=== PATIENT | male | born 1955 | race Caucasian/White ===

== ENCOUNTER → 2016-09-10 | Outpatient (CLI) | payer OTHER ==
[~2016-09-10] MED LIST: ALDACTONE 25MG25 M1 PO; AMOXICILLIN 8751 TAB PO; AMPICILLIN500 MG PO; LEVAQUIN 5500 MG/TA1 PO; NO HOME MEDICATIONS; NORCO 325 MG-51 TAB PO; PEPCID 20MG TAB20 MG PO; PROAIR HFA0.09 MG/AC IH; PROVENTIL0.09 MG/A1 IH; TOPROL XL 25MG25 MG PO; TUSS PO; XARELTO STARTER20 MG PO; XARELTO20 MG PO; ZESTRIL 5MG5 MG PO; ZITHROMAX 250M250 MG PO
[2016-09-10 12:45] LABS: ADJUSTED CALCIUM 9.3 mg/dL (8.4-10.2); ALBUMIN 3.8 gm/dL (3.5-5.0); BILIRUBIN,TOTAL 1.1 mg/dL (0.0-1.0); CALCIUM 9.1 mg/dL (8.4-10.2); CREATININE, serum 0.99 mg/dL (0.66-1.25); POTASSIUM 4.6 mmol/L (3.4-5.0); TOTAL PROTEIN 6.7 gm/dL (6.4-8.2)
[2016-09-10 12:57] LABS: HEMATOCRIT 47.3 % (42.0-52.0); HEMOGLOBIN 14.7 g/dl (13.5-18.0); MEAN CELL VOLUME 85 fl (80.0-100.0); MEAN CORPUSCULAR HEMOGLOBIN 26 pg (27.0-31.0); MEAN CORPUSCULAR HGB CONC 31 g/dl (33.0-37.0); MEAN PLATELET VOLUME 11.6 fl (7.4-10.4); PLATELET COUNT 167 K/mm3 (130-400); RED BLOOD COUNT 5.58 M/mm3 (4.20-5.60); REDCELL DISTRIBUTION WIDTH-CV 15.2 % (11.5-14.5); WHITE BLOOD COUNT 5.5 K/mm3 (4.8-10.8)
[2016-09-10 13:31] LABS: PSA-TOTAL 1.44 ng/mL (0-4)
== END ==
LOC: ZLAB.FHCC 11:50 → ZCOL.LAB 11:50
PROVIDERS: Family Medicine
DX: Z01.89 Encounter for other specified special examinations (principal)
CPT/HCPCS: G0103

== ENCOUNTER → 2016-09-25 | Outpatient (CLI) | payer OTHER | LOC: COL.VAS 13:01 | DX: I34.0 Nonrheumatic mitral (valve) insufficiency (principal); R06.02 Shortness of breath ==

== ENCOUNTER → 2017-01-27 | Outpatient (CLI) | payer OTHER | LOC: COL.VAS 10:12 | DX: I36.1 Nonrheumatic tricuspid (valve) insufficiency (principal) ==

== ENCOUNTER → 2017-11-14 | Outpatient (CLI) | payer SELFPAY | LOC: COL.PUL 14:49 | DX: R06.02 Shortness of breath (principal) ==

== ENCOUNTER 2020-12-17 11:53 | Inpatient (IN) | payer MEDICARE ==
[2020-12-17] VITALS (241 sets, daily range): BP systolic 94–115; BP diastolic 69–71; PULSE 92–100; TEMP 97.5; O2SAT 56–100
[~2020-12-17] VITALS: Ht 188 cm; Wt 147.8 kg
[2020-12-17 12:19] LABS: BASO % 0.4 % (0.0-2.0); EOS # 0.1 (0.0-0.7); EOS % 0.8 % (0-4.0); GRAN # 7.2 (1.4-6.5); GRAN % 79.2 % (42.2-75.2); HEMATOCRIT 48.1 % (42.0-52.0); HEMOGLOBIN 14.6 g/dl (13.5-18.0); LYMPH # 1.1 (1.2-3.4); LYMPH % 12.1 % (20.0-51.0); MEAN CELL VOLUME 84 fl (80.0-100.0); MEAN CORPUSCULAR HEMOGLOBIN 25 pg (27.0-31.0); MEAN CORPUSCULAR HGB CONC 30 g/dl (33.0-37.0); MEAN PLATELET VOLUME 10.6 fl (7.4-10.4); MONO # 0.6 (0.1-0.6); MONO % 6.8 % (1.7-9.3); PLATELET COUNT 204 K/mm3 (130-400); RED BLOOD COUNT 5.74 M/mm3 (4.20-5.60); REDCELL DISTRIBUTION WIDTH-CV 15.6 % (11.5-14.5)
[2020-12-17 12:20] LABS: INR 1.1 (0.8-3.0); PROTHROMBIN TIME 12.5 SECONDS (9.7-12.8)
[2020-12-17 12:23] LABS: PARTIAL THROMBOPLASTIN TIME 27.2 SECONDS (26.0-37.0)
[2020-12-17 12:25] LABS: ALANINE AMINOTRANSFERASE 25 U/L (4-49); ALBUMIN 3.9 gm/dL (3.5-5.0); ALKALINE PHOSPHATASE 75 U/L (50-136); ANION GAP 8 mmol/L (7-16); AST,SGOT 53 U/L (15-37); BLOOD UREA NITROGEN 12 mg/dL (9-20); CALCIUM 8.7 mg/dL (8.4-10.2); CARBON DIOXIDE 28 mmol/L (22-30); CHLORIDE 101 mmol/L (98-107); CREATININE, serum 0.92 (0.66-1.25); GLUCOSE 190 mg/dL (74-106); POTASSIUM 3.3 mmol/L (3.4-5.0); SODIUM 137 mmol/L (137-145); TOTAL PROTEIN 7.2 gm/dL (6.4-8.2)
[2020-12-17 12:28] LABS: ARTERIAL BLD GAS O2 SATURATION 90.7 % (92-100); ARTERIAL BLD GAS TCO2 CT 28.2; ARTERIAL BLOOD GAS BASE EXCESS 1.2 (-2-2); ARTERIAL BLOOD GAS HCO3 26.8 meq/L (22-26); ARTERIAL BLOOD GAS PO2 56.8 mmHg (80-100); ARTERIAL BLOOD GAS pH 7.38 (7.35-7.45)
[2020-12-17 12:40] LABS: TROPONIN-I < 0.012 ng/mL (0.000-0.035)
[2020-12-17] MEDS ORDERED: TAMBOCOR50 MG PO (12:51)
[2020-12-17] MEDS ORDERED: LASIX 40MG TABL40 MG PO (12:51)
[2020-12-17] MEDS ORDERED: TAMBOCOR150 MG PO (14:26)
--- NOTE | 2020-12-17 15:15 | NUR ---
Patient arrives from ED. ambulates from cart to bed with minimal issue. he is on 2 L/min O2. Patient legs noted to be edematous, right larger than left and right adamson has two small areas of weeping. toes, lateral feet and heels are dry and cracked. Aflutter noted on tele, but rate controlled. Call light reviewed as well as visitor policy. will review orders
--- NOTE | 2020-12-17 19:33 | NUR ---
Received report from LALI Mooney. Patient resting in recliner watching TV. VSS. No concerns or complaints noted from patient at this time. All medications verified and all questions answered. WIll resume care at this time.
[2020-12-18] VITALS (521 sets, daily range): BP systolic 88–113; BP diastolic 67–92; PULSE 91–119; TEMP 97.6–98.1; O2SAT 63–100
[2020-12-18 06:22] LABS: BASO % 0.7 % (0.0-2.0); EOS % 0.9 % (0-4.0); GRAN # 3.5 (1.4-6.5); GRAN % 75.9 % (42.2-75.2); HEMATOCRIT 47.3 % (42.0-52.0); HEMOGLOBIN 13.9 g/dl (13.5-18.0); LYMPH # 0.7 (1.2-3.4); LYMPH % 14.1 % (20.0-51.0); MEAN CELL VOLUME 88 fl (80.0-100.0); MEAN CORPUSCULAR HEMOGLOBIN 26 pg (27.0-31.0); MEAN CORPUSCULAR HGB CONC 29 g/dl (33.0-37.0); MEAN PLATELET VOLUME 10.4 fl (7.4-10.4); MONO # 0.4 (0.1-0.6); PLATELET COUNT 163 K/mm3 (130-400); RED BLOOD COUNT 5.37 M/mm3 (4.20-5.60); REDCELL DISTRIBUTION WIDTH-CV 15.9 % (11.5-14.5)
[2020-12-18 06:32] LABS: CREATININE, serum 0.92 (0.66-1.25); POTASSIUM 4.7 mmol/L (3.4-5.0)
[2020-12-18 06:43] LABS: TROPONIN-I 0.024 ng/mL (0.000-0.035)
[2020-12-18 06:55] LABS: C-REACTIVE PROTEIN 1.1 mg/dL (0.0-0.9)
--- NOTE | 2020-12-18 19:20 | NUR ---
Received report from LALI Rodriguez. All medictions verified and all questions answered. VSS. Patient sitting in recliner watching TV. No concerns or complaints noted at this time from patient. Will resume care of patient at this time.
[2020-12-19] VITALS (370 sets, daily range): BP systolic 93–122; BP diastolic 71–84; PULSE 85–110; TEMP 97.5–98.2; O2SAT 47–100
[2020-12-19 04:47] LABS: BASO % 0.6 % (0.0-2.0); EOS # 0.1 (0.0-0.7); EOS % 1.7 % (0-4.0); GRAN # 3.6 (1.4-6.5); GRAN % 74.2 % (42.2-75.2); HEMATOCRIT 48.2 % (42.0-52.0); LYMPH # 0.7 (1.2-3.4); LYMPH % 15.4 % (20.0-51.0); MEAN CELL VOLUME 88 fl (80.0-100.0); MEAN CORPUSCULAR HEMOGLOBIN 26 pg (27.0-31.0); MEAN CORPUSCULAR HGB CONC 29 g/dl (33.0-37.0); MONO # 0.4 (0.1-0.6); MONO % 7.5 % (1.7-9.3); PLATELET COUNT 162 K/mm3 (130-400); RED BLOOD COUNT 5.46 M/mm3 (4.20-5.60)
[2020-12-19 05:00] LABS: CALCIUM 9.2 mg/dL (8.4-10.2); CREATININE, serum 0.89 (0.66-1.25); POTASSIUM 4.6 mmol/L (3.4-5.0)
--- NOTE | 2020-12-19 07:00 | NUR ---
RECEIVED REPORT FORM LALI GREGORY. PT SITTING UP IN RECLINER ON 2L VIA GA. VSS. CALL LIGHT AND URINAL WITHIN REACH.
--- NOTE | 2020-12-19 09:25 | NUR ---
RN CALLED TO BEDSIDE BY OT. PT C/O SHOB AND DIZZINESS. HR NOTIED 180. HAD PT PERFORM VAGAL MANEUVER X1, HR WENT FROM 180 TO 160 THEN BACK TO THE 90s. LANE ZABALA NOTIFIED OF EPISODE AND RETURNS TO BEDSIDE TO SEE EKG AND SEE PT.
[2020-12-19 12:44] LABS: COLLECTION METHOD CLEAN CATCH
[2020-12-19 12:50] LABS: PH 5 (5-8); SQUAMOUS EPITHELIAL None Seen /hpf; URINE APPEARANCE Clear; URINE BACTERIA Rare /hpf; URINE BILIRUBIN Negative (NEGATIVE); URINE BLOOD Negative (NEGATIVE); URINE COLOR Yellow; URINE GLUCOSE Negative (NEGATIVE); URINE KETONE Negative (NEGATIVE); URINE LEUKOCYTE ESTERASE Negative (NEGATIVE); URINE NITRATE Negative (NEGATIVE); URINE PROTEIN(semi-quant) Negative (NEGATIVE); URINE RBC 0-2 /hpf; URINE UROBILINOGEN Negative (NEGATIVE); URINE WBC 0-2 /hpf
--- NOTE | 2020-12-19 13:50 | NUR ---
Field Technical Specialist attended clinical rounds with the team. Following rounds, SW met with the patient, the patient's daughter Lucille, and the patient's sister Zoey to complete intake. The patient lives outside of [place] with Lucille. The patient denies DME use and is independent. The patient's PCP is Dr. Weston and the patient receives medications from [facility]. The patient does not have advanced directives but was interested in DPOA-HC form. Form provided. The patient has two children Lucille and Benedict Stone, son lives locally. The patient plans to return home with daughter at discharge. PT/OT ordered. *Discharge disposition: Home with daughter
--- NOTE | 2020-12-19 13:58 | NUR ---
REPORT GIVEN TO LALI LAGOS. PT TRANSFERRED TO [facility] VIA ON RA. ALL PERSONAL BELGONINGS SENT WITH PT.
--- NOTE | 2020-12-19 14:27 | NUR ---
The patient completed DPOA-HC. The patient's nurse and ICU hotel casino floorperson witnessed. The patient designated his sister Cynthia Villarreal (Pat) # . A copy was placed in the chart, original and copies given to the patient. *Discharge disposition: Home with daughterLucille
--- NOTE | 2020-12-19 14:30 | NUR ---
patient arrived to room 308 from ICU at this time, he is alert/oriented, sitting up in the chair, family present in the room, he denies pain or disocmfort, reporst feeling better overall, call light and phone in reach, denies other needs at this time
--- NOTE | 2020-12-19 14:39 | NUR ---
First visit from the product control and logistics analyst. No needs right now.
[2020-12-20 04:43] VITALS: BP 138/96; PULSE 109; TEMP 98
--- NOTE | 2020-12-20 05:18 | NUR ---
RESTED THROUGH THE NIGHT WITHOUT INCIDENT. DID SET UP AND SLEEP IN RECLINER ALL NIGHT.NEEDS MET.
[2020-12-20 06:24] LABS: BASO % 0.6 % (0.0-2.0); EOS # 0.1 (0.0-0.7); EOS % 1.3 % (0-4.0); GRAN # 3.6 (1.4-6.5); GRAN % 76.4 % (42.2-75.2); HEMATOCRIT 46.7 % (42.0-52.0); HEMOGLOBIN 13.9 g/dl (13.5-18.0); LYMPH # 0.6 (1.2-3.4); LYMPH % 13.4 % (20.0-51.0); MEAN CELL VOLUME 88 fl (80.0-100.0); MEAN CORPUSCULAR HEMOGLOBIN 26 pg (27.0-31.0); MEAN CORPUSCULAR HGB CONC 30 g/dl (33.0-37.0); MEAN PLATELET VOLUME 10.9 fl (7.4-10.4); MONO # 0.4 (0.1-0.6); MONO % 7.5 % (1.7-9.3); PLATELET COUNT 180 K/mm3 (130-400); REDCELL DISTRIBUTION WIDTH-CV 16.1 % (11.5-14.5)
[2020-12-20 06:36] LABS: CALCIUM 9.2 mg/dL (8.4-10.2); CREATININE, serum 0.95 (0.66-1.25); POTASSIUM 4.5 mmol/L (3.4-5.0)
[2020-12-20 08:07] VITALS: BP 114/88; PULSE 57; TEMP 98
--- NOTE | 2020-12-20 11:35 | NUR ---
Assessment completed, alert/oriented, vital signs stable, heart irrgular/ A.fib on tele with HR 80's, no SVT/ Tachy events noted over night, patient stated he uses urinal sometimes but sometime voids in toilet /I instructed patient on using urinal all the time so we can assess how well we are doing with his fluid status and diruetics, BLE 3+/ red /scaly, I have instructed him multiple times to keep LE elevated as much as possible, he however continues to sit in his recline most of the time with the leg rest down, I continue to eduate on benefits of elevation to help with his PVD/ Edema, lungs are CTA/ diminished and he is on room air, denies any chest discomfort or dyspnea, denies needs we will continue to monitor
[2020-12-20 11:39] VITALS: BP 118/75; PULSE 82; TEMP 98.2
--- NOTE | 2020-12-20 15:13 | NUR ---
Follow up visit from the resizer operator. No needs right now.
[2020-12-20 16:56] VITALS: BP 111/69; PULSE 72; TEMP 97.5
[2020-12-20 19:01] VITALS: BP 121/77; PULSE 74; TEMP 97.5
--- NOTE | 2020-12-20 22:11 | NUR ---
ALERT AND OX4. DENIES ANY SOA,CHEST PAIN OR DIZZY. STATES DOES GET A LITTLE LIGHTHEADED W AMBULATION. HEART RATE AFIB CONTROLLED. PM MEDS GIVEN. POC DISCUSSED. PT SITTING UP IN RECLINER WHERE HE SLEEPS. NEEDS MET.
[2020-12-20 23:23] VITALS: BP 117/68; PULSE 85; TEMP 97.3
[2020-12-21] VITALS (8 sets, daily range): BP systolic 99–119; BP diastolic 57–76; PULSE 66–94; TEMP 97.4–98.1
--- NOTE | 2020-12-21 04:59 | NUR ---
RESTED THROUGH THE NIGHT WITHOUT INCIDENT. NPO SINCE MIDNIGHT FOR STEPHANIE/CARDIOVERSION THIS AM. NEEDS MET.
[2020-12-21 06:26] LABS: BASO % 0.6 % (0.0-2.0); EOS # 0.1 (0.0-0.7); EOS % 1.3 % (0-4.0); GRAN # 4.1 (1.4-6.5); HEMATOCRIT 48.9 % (42.0-52.0); HEMOGLOBIN 14.6 g/dl (13.5-18.0); LYMPH # 0.6 (1.2-3.4); LYMPH % 10.6 % (20.0-51.0); MEAN CELL VOLUME 86 fl (80.0-100.0); MEAN CORPUSCULAR HEMOGLOBIN 26 pg (27.0-31.0); MEAN CORPUSCULAR HGB CONC 30 g/dl (33.0-37.0); MEAN PLATELET VOLUME 10.8 fl (7.4-10.4); MONO # 0.5 (0.1-0.6); MONO % 8.9 % (1.7-9.3); PLATELET COUNT 179 K/mm3 (130-400); RED BLOOD COUNT 5.69 M/mm3 (4.20-5.60); REDCELL DISTRIBUTION WIDTH-CV 15.9 % (11.5-14.5)
[2020-12-21 06:36] LABS: INR 1.5 (0.8-3.0); PROTHROMBIN TIME 16.1 SECONDS (9.7-12.8)
[2020-12-21 06:46] LABS: CALCIUM 9.5 mg/dL (8.4-10.2); CREATININE, serum 1.06 (0.66-1.25); POTASSIUM 4.3 mmol/L (3.4-5.0)
[2020-12-21 07:12] LABS: THYROID STIMULATING HORMONE 5.36 uIU/mL (0.465-4.680)
--- NOTE | 2020-12-21 08:48 | NUR ---
Assessment completed, alert/oriented, vital signs stable, heart irregular/ a.fib with rate control on tele, he denies any chest pain or discomfort, denies feeling lightheaded or syncopal, lungs CTA/ diminished, BLE red/3+edema, encourage to keep LE and feet elevated, he is NPo for STEPHANIE/CV later today, he has signed consent and verbalized understanding of POC, denies other needs
--- NOTE | 2020-12-21 09:04 | NUR ---
SW attended clinical rounds. The patient is to have a STEPHANIE and cardioversion today. SW followed up with the patient to review d/c plan. The patient still plans on returning home with his daughter upon discharge. He had no concerns for SW at this time.
--- NOTE | 2020-12-21 15:15 | NUR ---
Patient arrived back from his STEPHANIE/CV, alert/oriented, vital signs stable, denies pain, family present in room, SR on tele, will continue to monitor
--- NOTE | 2020-12-21 21:34 | NUR ---
ALERT AND OX4. DENIES SOA, CHEST PAIN OR DIZZY. DOSE GET LABORED BREATHING, SOA W EXCERTION. PM MEDS GIVEN. POC DISCUSSE. POSSIBLE DC TOMORROW PER PT. NEEDS MET.
--- NOTE | 2020-12-22 05:02 | NUR ---
rested in recliner all night without incident. remains in normal sinus rythm. Needs met.
[2020-12-22 06:17] LABS: BASO % 0.4 % (0.0-2.0); EOS # 0.1 (0.0-0.7); EOS % 1.4 % (0-4.0); GRAN # 3.8 (1.4-6.5); GRAN % 77.5 % (42.2-75.2); HEMATOCRIT 48.3 % (42.0-52.0); HEMOGLOBIN 14.4 g/dl (13.5-18.0); LYMPH # 0.6 (1.2-3.4); LYMPH % 12.6 % (20.0-51.0); MEAN CELL VOLUME 86 fl (80.0-100.0); MEAN CORPUSCULAR HEMOGLOBIN 26 pg (27.0-31.0); MEAN CORPUSCULAR HGB CONC 30 g/dl (33.0-37.0); MONO # 0.4 (0.1-0.6); MONO % 7.3 % (1.7-9.3); PLATELET COUNT 188 K/mm3 (130-400); RED BLOOD COUNT 5.61 M/mm3 (4.20-5.60); REDCELL DISTRIBUTION WIDTH-CV 16.3 % (11.5-14.5)
[2020-12-22 06:30] LABS: CALCIUM 9.8 mg/dL (8.4-10.2); CREATININE, serum 1.1 (0.66-1.25); POTASSIUM 4.1 mmol/L (3.4-5.0)
[2020-12-22 06:54] LABS: MAGNESIUM 1.8 mg/dL (1.6-2.3)
[2020-12-22 07:15] VITALS: BP 122/71; PULSE 59; TEMP 97.5
--- NOTE | 2020-12-22 08:00 | NUR ---
Patient sitting up in the recliner, A&Ox4. VSS IV CDI. Denies pain and discomfort. Patient had feet elevated. No further needs expressed from the patient. Call light within reach
[2020-12-22] MEDS ORDERED: OMNICEF 300MG300 MG PO (09:38)
[2020-12-22] MEDS ORDERED: XARELTO20 MG PO (09:40)
[2020-12-22] MEDS ORDERED: CORDARONE200 MG/TAB PO (09:42)
--- NOTE | 2020-12-22 10:04 | NUR ---
The patient is to discharge back home with his daughter today, 12/22. SW met with the patient and presented and read the IM form outloud to him. The patient verbalized understanding and gave SW approval to sign the form on his behalf. SW provided him with a copy. No additional needs at this time.
[2020-12-22 11:30] VITALS: BP 117/57; PULSE 65; TEMP 97.5
--- NOTE | 2020-12-22 12:11 | NUR ---
Discharge paperwork reviewed with the patient and . Patient verbalized an understanding to follow doctors orders. IV removed, tip intact, gauze and coban applied. No further needs expressed from the patient. Call light within reach
--- NOTE | 2020-12-22 12:38 | NUR ---
Patient taken by wheelchair by nursing staff to PT entrance. Discharge paperwork and personal belongings with the patient. No further needs expressed from the patient.
== END 2020-12-22 12:39 | disposition home or self-care (01) | DRG 189 ==
LOC: COL.ER 11:53 → MEDICAL 14:18 → ICU 14:18 → MEDICAL 12-19 14:32
PROVIDERS: Family Medicine; Nurse Practitioner; Physician Assistant; Student in an Organized Health Care Education/Training Program; ADMIT Internal Medicine
PROC: 5A2204Z Restoration of Cardiac Rhythm, Single (ICD-10-PCS; principal; 2020-12-21)
DX: J96.21 Acute and chronic respiratory failure with hypoxia (principal); E66.2 Morbid (severe) obesity with alveolar hypoventilation; E87.2 Acidosis; I48.92 Unspecified atrial flutter; E87.3 Alkalosis; I50.20 Unspecified systolic (congestive) heart failure; J98.4 Other disorders of lung; J96.22 Acute and chronic respiratory failure with hypercapnia; I73.9 Peripheral vascular disease, unspecified; F50.82 Avoidant/restrictive food intake disorder; E87.5 Hyperkalemia; I50.9 Heart failure, unspecified; Z20.822 Contact with and (suspected) exposure to COVID-19; I48.0 Paroxysmal atrial fibrillation; E66.9 Obesity, unspecified; Z86.711 Personal history of pulmonary embolism; Z90.89 Acquired absence of other organs; Z87.891 Personal history of nicotine dependence
CPT/HCPCS: 99223-AI; 99232-AI; 99233-AI; 99239; J0696; J2704; J7030; Q9967

== ENCOUNTER 2021-03-08 08:11 | Day surgery (SDC) | payer MEDICARE ==
[2021-03-08] VITALS (10 sets, daily range): BP systolic 98–119; BP diastolic 58–81; PULSE 55–61; TEMP 97.9
[~2021-03-08] VITALS: Ht 188 cm; Wt 141.7 kg
[~2021-03-08 08:11] MED LIST changes: +CORDARONE200 MG/TAB PO; +LASIX 40MG TABL40 MG PO; +OMNICEF 300MG300 MG PO; +TAMBOCOR150 MG PO; +TAMBOCOR50 MG PO
[2021-03-08] MEDS ORDERED: CORDARONE200 MG/TAB PO (08:29)
[2021-03-08] MEDS ORDERED: IPRATROPIUM BROM3 M1 IH (08:31)
[2021-03-08] MEDS ORDERED: TOPROL XL 25MG25 MG PO (08:31)
[2021-03-08 09:11] LABS: CREATININE, serum 1.07 (0.66-1.25); POTASSIUM 4.2 mmol/L (3.4-5.0)
[2021-03-08 09:13] LABS: HEMOGLOBIN 14.8 g/dl (13.5-18.0); MEAN CELL VOLUME 86 fl (80.0-100.0); MEAN CORPUSCULAR HEMOGLOBIN 26 pg (27.0-31.0); MEAN CORPUSCULAR HGB CONC 30 g/dl (33.0-37.0); MEAN PLATELET VOLUME 10.5 fl (7.4-10.4); PLATELET COUNT 201 K/mm3 (130-400); RED BLOOD COUNT 5.67 M/mm3 (4.20-5.60); REDCELL DISTRIBUTION WIDTH-CV 17.3 % (11.5-14.5)
[2021-03-08 09:20] LABS: PROTHROMBIN TIME 11.5 SECONDS (9.7-12.8)
[2021-03-08 09:22] LABS: PARTIAL THROMBOPLASTIN TIME 30.4 SECONDS (26.0-37.0)
--- NOTE | 2021-03-08 10:45 | NUR ---
Pt back to express after negative heart cath. pt is pwd, alert and oriented, resp reg and unlabore. TR band to rt wrist, cms intact distal. NSR/SB on tele. pt aware of poc, lunch ordered. call light in reach.
--- NOTE | 2021-03-08 12:40 | NUR ---
pt noted to be hypoxic o2 sats 80% while dozing off, sats up to mid 90's when I awakened pt and he was talking. I informed Matthew SHERMAN, and placed pt on NC at 1 L/M bringing sats up to mid 90's while sleeping.
--- NOTE | 2021-03-08 15:05 | NUR ---
Pt care was handed off to Sarah ESCALERA at 1300. TR band was removed and site dressed by Sarah. dc/fu instructions were reviewed wtih pt by Sarah ESCALERA and she escorted him to exit at 1505.
--- NOTE | 2021-03-08 15:19 | NUR ---
Air released from band in 2-3 ml incriments.No bleeding observed at site.Discharge instructions given to pt.pt verbalizes understanding.INT removed,cathetr tip intact.Pt escorted out via wheelchair by this nurse.
== END 2021-03-08 18:28 | disposition home or self-care (01) ==
LOC: COL.CAR 08:11
PROVIDERS: Internal Medicine Interventional Cardiology
DX: I48.92 Unspecified atrial flutter (principal); Z53.8 Procedure and treatment not carried out for other reasons
CPT/HCPCS: C1769; J1644; J2250; J3010

== ENCOUNTER 2021-11-13 14:43 | Outpatient (RCR) | payer MEDICARE ==
[~2021-11-13 14:43] MED LIST changes: +IPRATROPIUM BROM3 M1 IH
== END 2021-11-17 | disposition home or self-care (01) ==
LOC: WSPT
DX: I89.0 Lymphedema, not elsewhere classified (principal)

== ENCOUNTER 2021-11-28 09:00 | Outpatient (RCR) | payer MEDICARE | END 2021-12-18 | disposition home or self-care (01) | LOC: WSPT | DX: I89.0 Lymphedema, not elsewhere classified (principal) ==

== ENCOUNTER 2021-12-25 09:57 | Outpatient (RCR) | payer MEDICARE ==
[2021-12-27] MEDS ORDERED: COZAAR 25MG25 MG/TAB PO (00:38)
[2021-12-27] MEDS ORDERED: BACTRIM DS 8001 TAB PO (00:42)
[2021-12-27] MEDS ORDERED: AMOXICILLIN 8751 TAB PO (00:42)
[2021-12-31] MEDS ORDERED: OXYGEN NASAL.CANN (14:59)
== END 2022-01-17 | disposition home or self-care (01) ==
LOC: WSPT
DX: I89.0 Lymphedema, not elsewhere classified (principal)

== ENCOUNTER 2021-12-26 17:42 | Inpatient (IN) | payer MEDICARE ==
[~2021-12-26] VITALS: Ht 188 cm; Wt 144.0 kg
[2021-12-26 23:57] VITALS: BP 141/85; PULSE 75; TEMP 97.4
[2021-12-27] VITALS (7 sets, daily range): BP systolic 90–149; BP diastolic 52–84; PULSE 69–87; TEMP 97.3–98.4
[2021-12-27] MEDS ORDERED: COZAAR 25MG25 MG/TAB PO (00:38)
[2021-12-27] MEDS ORDERED: BACTRIM DS 8001 TAB PO (00:42)
[2021-12-27] MEDS ORDERED: AMOXICILLIN 8751 TAB PO (00:42)
[2021-12-27 03:30] LABS: BASO % 0.6 % (0.0-2.0); EOS # 0.1 K/mm3 (0.0-0.7); EOS % 1.4 % (0.0-4.0); GRAN # 4.9 K/mm3 (1.4-6.5); GRAN % 77.9 % (42.2-75.2); HEMATOCRIT 45.8 % (42.0-52.0); HEMOGLOBIN 13.3 g/dl (13.5-18.0); LYMPH # 0.6 K/mm3 (1.2-3.4); LYMPH % 10.3 % (20.0-51.0); MEAN CELL VOLUME 85 fl (80.0-100.0); MEAN CORPUSCULAR HEMOGLOBIN 25 pg (27-31); MEAN CORPUSCULAR HGB CONC 29 g/dl (33.0-37.0); MEAN PLATELET VOLUME 9.2 fl (7.4-10.4); MONO # 0.6 K/mm3 (0.1-0.6); PLATELET COUNT 196 K/mm3 (130-400); RED BLOOD COUNT 5.42 M/mm3 (4.20-5.60); REDCELL DISTRIBUTION WIDTH-CV 18.9 % (11.5-14.5)
[2021-12-27 03:46] LABS: CALCIUM 9.1 mg/dL (8.4-10.2); CREATININE, serum 1.06 mg/dL (0.72-1.25); POTASSIUM 4.5 mmol/L (3.5-4.5)
[2021-12-27 03:56] LABS: TROPONIN-I 0.071 ng/mL (0.00-0.033)
--- NOTE | 2021-12-27 06:00 | NUR ---
PT ARRIVED TO THE MEDICAL FLOOR AROUND 2350HRS TO ROOM 316. PT A&O X 4; VSS; O2 TO RA. PT DENIED CHEST PAIN, GENERALIZED PAIN, N,V,D, SOB OR DIZZINESS. ADMISSION ASSESSMENT AND MED REC COMPLETE. PT ORIENTED TO FLOOR AND HOSPITAL POLICY. POC DISCUSSED WITH PT. PT VERBALIZED UNDERSTANDING. ALL QUESTIONS AND CONCERNS ADDRESSED. PT EXPRESSED NO OTHER NEEDS AT THIS TIME. CALL LIGHT WITHIN REACH.
[2021-12-27 08:02] LABS: ARTERIAL BLD GAS O2 SATURATION 92.3 % (92-100); ARTERIAL BLD GAS TCO2 CT 28.5; ARTERIAL BLOOD GAS PCO2 48.2 mmHg (35-45); ARTERIAL BLOOD GAS PO2 66.6 mmHg (80-100); ARTERIAL BLOOD GAS pH 7.37 (7.35-7.45)
--- NOTE | 2021-12-27 09:01 | NUR ---
Scheduled medications given. Shift assessment preformed. VSS. Patient A&O. Patient currently requiring 5L of O2 via nasal cannula. +3 BLE edema noted. BLE wounds covered in dressings noted. Patient denies any pain, discomfort, SOA, or further needs at this time. Call light in reach.
--- NOTE | 2021-12-27 11:17 | NUR ---
brewery worker met with patient to complete intake and discuss discharge plan. Patient reports that he lives at home with his daughter Lucille ([phone]) in [place]. Patient reports to being independent with his ADL's and will utilize a cane PRN to assist with ambulation. Patient reports that he is supposed to be utilizing both home oxygen and a CPAP at night but hasn't gotten it yet. [facility] [place] but " i can't get ahold of anyone to bring it out". PCP is Dr. Weston and he utilizes [facility] for perscription needs. Patient does have a DPOA-HC established listing his sister Cynthia ([phone]). A copy is located in the patient's EMR. Phone call made to the [facility] in [place] and spoke with pharmacist who states that they do not have a prescription on file for oxygen on this patient. Discharge plan: Home * will need assistance getting oxygen and CPAP established*
--- NOTE | 2021-12-27 16:37 | NUR ---
troponin called to AUNG Dickson who read back the results.
--- NOTE | 2021-12-27 19:12 | NUR ---
Patient has had an ok day. Patient currently requiring 5L of O2 via nasal cannula. VSS. Patient A&O. Patient denies any pain, discomfort, or further needs at this time. Call light in reach.
[2021-12-28] VITALS (8 sets, daily range): BP systolic 84–111; BP diastolic 45–62; PULSE 75–95; TEMP 97.4–98.6
--- NOTE | 2021-12-28 03:32 | NUR ---
ASSESSMENT COMPLETE FOR THIS SHIFT. PT RESTING IN HIS RECLINER NAPPING. PT DENIED PAIN, PALPITATIONS, N,V,D, SOB OR DIZZINESS. PT HAS HAD SOME SOFT PRESSURES THIS SHIFT (B/P: 95/53; 90/57). HOSPITALIST INFORMED. WILL CONTINUE TO MONITOR. PT EXPRESSED NO OTHER NEEDS AT THIS TIME. CALL LIGHT WITHIN REACH.
[2021-12-28 06:31] LABS: BASO % 0.4 % (0.0-2.0); EOS # 0.1 K/mm3 (0.0-0.7); EOS % 1.8 % (0.0-4.0); GRAN # 4.5 K/mm3 (1.4-6.5); GRAN % 79.4 % (42.2-75.2); HEMATOCRIT 47.5 % (42.0-52.0); HEMOGLOBIN 13.4 g/dl (13.5-18.0); LYMPH # 0.5 K/mm3 (1.2-3.4); LYMPH % 9.4 % (20.0-51.0); MEAN CELL VOLUME 86 fl (80.0-100.0); MEAN CORPUSCULAR HEMOGLOBIN 24 pg (27-31); MEAN CORPUSCULAR HGB CONC 28 g/dl (33.0-37.0); MEAN PLATELET VOLUME 9.5 fl (7.4-10.4); MONO # 0.5 K/mm3 (0.1-0.6); MONO % 8.3 % (1.7-9.3); PLATELET COUNT 203 K/mm3 (130-400)
[2021-12-28 06:55] LABS: C-REACTIVE PROTEIN 1.99 mg/dL (0.00-0.50); CALCIUM 8.9 mg/dL (8.4-10.2); CREATININE, serum 1.02 mg/dL (0.72-1.25); POTASSIUM 4.7 mmol/L (3.5-4.5)
--- NOTE | 2021-12-28 10:48 | NUR ---
Scheduled medications given. Shift assessment preformed. Patient currently requiring 5L of O2 via nasal cannula. Denies any pain, discomfort, or further needs at this time. VSS. Patient A&O. Call light in reach.
--- NOTE | 2021-12-28 13:01 | NUR ---
Several visit attempts; Patient sleeping or out of the room. Manager Harbor left card offering God's blessings and information regarding the availability of [facility] throughout each day and [employer] on weekends.
--- NOTE | 2021-12-28 13:42 | NUR ---
Pretzel Twister contacted [facility] and spoke with RT about process for setting up home oxygen in the event of a weekend discharge. SW was advised that if DC over the weekend, SW will need to contact [facility] (ph#[phone]) and ask for the pharmacist molten iron pourer who will then contact the RT for weekend set up. MAGUI [facility]. MAGUI contacted patient's daughter, Lucille to provide update. Discharge Plan: Home, likely need home oxygen
--- NOTE | 2021-12-28 16:35 | NUR ---
Conrado notified regarding hypotension. Order for fluid bolus ordered.
--- NOTE | 2021-12-28 18:14 | NUR ---
Patient has had an ok day. Currently requiring 5L of O2 via nasal cannula sating 92%. Patient hypotensive during last sets of vital rounds, bolus given per Dr. Camp. BP upon recheck was 96/59. Patient currently denies any pain, discomfort, SOA, or further needs at this time. Call light in reach.
[2021-12-29 00:10] VITALS: BP 105/68; PULSE 69; TEMP 98.3
--- NOTE | 2021-12-29 02:08 | NUR ---
ASSESSMENT COMPLETE FOR THIS SHIFT. PT RESTING IN HIS RECLINER WATCHING TV AND DOSING OFF. PT DENIED GENERAL PAIN, CHEST PAIN, PALPITATIONS, N,V,D, SOB OR DIZZINESS. PT HAD SOME LOW B/P'S (84/52; 86/45). PT ASYMPTOMATIC AND STATES HE FEELS FINE. HOSPITALIST CALLED. BOLUS ORDERED AND GIVEN. PT'S NEXT B/P WAS (105/68). WILL CONTINUE TO MONITOR. PT EXPRESSED NO OTHER NEEDS AT THIS TIME. CALL LIGHT WITHIN REACH.
[2021-12-29 04:52] VITALS: BP 106/58; PULSE 83; TEMP 99.5
[2021-12-29 07:25] LABS: HEMATOCRIT 45.4 % (42.0-52.0); MEAN CELL VOLUME 84 fl (80.0-100.0); MEAN CORPUSCULAR HEMOGLOBIN 24 pg (27-31); MEAN CORPUSCULAR HGB CONC 29 g/dl (33.0-37.0); MEAN PLATELET VOLUME 9.4 fl (7.4-10.4); PLATELET COUNT 227 K/mm3 (130-400); REDCELL DISTRIBUTION WIDTH-CV 19.3 % (11.5-14.5)
[2021-12-29 08:02] LABS: CREATININE, serum 0.99 mg/dL (0.72-1.25); MAGNESIUM 2.2 mg/dL (1.6-2.6); POTASSIUM 4.2 mmol/L (3.5-4.5)
[2021-12-29 08:12] LABS: BASO % 0.6 % (0.0-2.0); EOS # 0.1 K/mm3 (0.0-0.7); EOS % 1.1 % (0.0-4.0); GRAN # 4.3 K/mm3 (1.4-6.5); GRAN % 79.5 % (42.2-75.2); LYMPH # 0.6 K/mm3 (1.2-3.4); LYMPH % 10.7 % (20.0-51.0); MONO # 0.4 K/mm3 (0.1-0.6); MONO % 7.5 % (1.7-9.3)
[2021-12-29 08:36] VITALS: BP 91/57; PULSE 91; TEMP 97.9
--- NOTE | 2021-12-29 10:14 | NUR ---
PT PLEASANT, AOX4, DENIES PAIN, REPORTS SOB WITH EXERTION, EDUCATED PT ON FLUID RESTRICTION, WILL REQUIRE REINFORCEMENT ON TEACHING. MONITORING I/O. PT STEADY ON FEET, MEDICATIONS GIVEN, BP MED AND LASIX HELD DUE TO SOFT BP. PT HAS NOT HAD BM SINCE FRIDAY, PASSING GAS. NO OTHER NEEDS
[2021-12-29 11:55] VITALS: BP 107/55; PULSE 81; TEMP 97.8
--- NOTE | 2021-12-29 14:46 | NUR ---
UNDRESSING PT BLE. SKIN FALLING OFF OF DRESSING, REDRESSED. THEN NOTED MOVEMENT ON THE FLOOR, SMALL LARVAE PRESENT. R LEG UNDRESSED AGAIN AND NOTED LARVAE CRAWLING ON SKIN. LEFT UNDRESSED AT THIS TIME. NO LARVAE NOTED IN LLE. PT DENIES WOUND CARE NURSE MENTIONING LARVAE IN WOUND DURING DRESSING CHANGES AT HOME, NURSE LAST CHANGED 12/25/21, PT LAST CHANGED DRESSING HIMSELF 12/27/21. DR. HOLLEY NOTIFIED AND SURGICAL CONSULT REQUESTED. DR. ZARATE NOTIFIED AND ORDERED TO LEAVE UNDRESSED FOR FURTHER ASSESSMENT.
[2021-12-29 15:50] VITALS: BP 107/65; PULSE 82; TEMP 98
--- NOTE | 2021-12-29 17:12 | NUR ---
PT PLEASANT, AOX4, SLOW WITH RESPONSES, AT BEDSIDE, PT DENIES PAIN AND DENIES DIARRHEA AFTER THE IMMODIUM.
--- NOTE | 2021-12-29 17:30 | NUR ---
PT PLEASANT, AOX4, STILL REQUIRING OXYGEN, UP TO CHAIR DURING SHIFT, PT DENIES PAIN, LEGS UNWRAPPED FOR SURGICAL ASSESSMENT.
--- NOTE | 2021-12-29 18:12 | NUR ---
PT SHOWERED AND LEGS CLEANED WITH SOAP AND WATER PER SURGICAL RECOMMENDATIONS.
[2021-12-29 20:00] VITALS: BP 106/59; PULSE 75; TEMP 98
[2021-12-30] VITALS: BP 100/58; PULSE 95; TEMP 97.7
[2021-12-30 04:00] VITALS: BP 109/64; PULSE 75; TEMP 98
--- NOTE | 2021-12-30 06:00 | NUR ---
ASSESSMENT COMPLETE FOR THIS SHIFT. PT RESTING IN HIS RECLINER WATCHING TV. PT DENIED GENERAL PAIN, CHEST PAIN, PALPITATIONS, SOB, N,V,D OR DIZZINESS. DRESSINGS TO BLE CHANGED. PT HAD AN OTHERWISE UNEVENTFUL NIGHT. PT EXPRESSED NO OTHER NEEDS AT THIS TIME. CALL LIGHT WITHIN REACH..
[2021-12-30 06:52] LABS: BASO % 0.7 % (0.0-2.0); EOS # 0.1 K/mm3 (0.0-0.7); EOS % 2.3 % (0.0-4.0); GRAN # 4.4 K/mm3 (1.4-6.5); HEMATOCRIT 48.4 % (42.0-52.0); HEMOGLOBIN 13.7 g/dl (13.5-18.0); LYMPH # 0.6 K/mm3 (1.2-3.4); LYMPH % 11.2 % (20.0-51.0); MEAN CELL VOLUME 85 fl (80.0-100.0); MEAN CORPUSCULAR HEMOGLOBIN 24 pg (27-31); MEAN CORPUSCULAR HGB CONC 28 g/dl (33.0-37.0); MEAN PLATELET VOLUME 9.8 fl (7.4-10.4); MONO # 0.5 K/mm3 (0.1-0.6); MONO % 8.3 % (1.7-9.3); PLATELET COUNT 238 K/mm3 (130-400); RED BLOOD COUNT 5.67 M/mm3 (4.20-5.60); REDCELL DISTRIBUTION WIDTH-CV 18.8 % (11.5-14.5)
[2021-12-30 07:18] LABS: CALCIUM 9.3 mg/dL (8.4-10.2); CREATININE, serum 1.02 mg/dL (0.72-1.25); POTASSIUM 4.8 mmol/L (3.5-4.5)
--- NOTE | 2021-12-30 07:55 | NUR ---
DISCUSSED WOUND CARE WITH GARCIA HORAN AND RECOMMENDED MORE FREQUENT DRESSING CHANGES AFTER FINDING LARVAE IN/ON RLE. INFORMED PT OF POC FOR SHOWER AND DRESSING CHANGE AND TO LET US KNOW WHEN HE WOULD LIKE TO SHOWER. PT AGREEABLE. MEDICATIONS GIVEN TO PT AND EDUCATED ON THE USE FOR EACH PILL. ASSESSMENT PERFORMED, BOWEL SOUNDS HYPOACTIVE AND PT DENIES PASSING GAS. WHEN ASKED IF HE WOULD LIKE MIRALAX OR SOME OTHER FORM OF STOOL SOFTENER PT REPLIED "IT WONT DO NO GOOD".
[2021-12-30 07:56] VITALS: BP 109/61; PULSE 81; TEMP 98.1
--- NOTE | 2021-12-30 10:20 | NUR ---
RT CALLED FOR EXERCISE OXIMETRY
[2021-12-30 11:40] VITALS: BP 107/63; PULSE 80; TEMP 98.4
--- NOTE | 2021-12-30 12:48 | NUR ---
DISCHARGE EDUCATION PROVIDED TO PT. ENCOURAGED TO FOLLOW UP TO WOUND CARE FOR BLE, APPT ALREADY MADE WITH WOUND CARE NURSE PER NORMAL SCHEDULE. DENIES PAIN, WILL REMOVE IV AND TELE CLOSER TO DISCHARGE. NO OTHER NEEDS
--- NOTE | 2021-12-30 13:35 | NUR ---
MAGUI contacted [employer] to setup o2 at 3L. Senia reported they dont deliver. MAGUI contacted pt sister,amie and she reports she can pickle cutter the portable concentrator at 1pm in [place] and deliver it the pt before he DC. MAGUI faxed over DC orders, o2 paperwork to [phone].
--- NOTE | 2021-12-30 13:40 | NUR ---
recieved call from tele reporting change from junctional rhythm and heart block. pt denies feeling any different at this time, pt also reports he does not have a bp cuff to take bp at home. Yessi HORAN notified and highly recommended pt purchase one at pharmacy and to get an EKG. RT called about new order. no other needs
--- NOTE | 2021-12-30 14:06 | NUR ---
TELE STRIPS PROVIDED FOR DR. HOLLEY, INFORMED PT OF CURRENT SITUATION
--- NOTE | 2021-12-30 14:37 | NUR ---
DR. STRONGRU COMFORTABLE WITH DISCHARGE, BUT ORDERED TO STOP METOPROLOL AND TO FOLLOW UP WITH [facility]. PT REPORTS APPT WITH [facility] AND ENCOURAGED TO KEEP APPT. INFORMED PT TO DISCONTINUE METOPROLOL AND PRINTED IT ON PT DISCHARGE PAPER. IV AND TELE REMOVED. PT THEN TAKEN DOWN VIA WHEELCHAIR TO EXIT WITH PT BELONGINGS.
[2021-12-31] MEDS ORDERED: OXYGEN NASAL.CANN (14:59)
== END 2021-12-30 14:38 | disposition home or self-care (01) | DRG 189 ==
LOC: MEDICAL 17:42
PROVIDERS: Physician Assistant; Student in an Organized Health Care Education/Training Program; ADMIT Family Medicine
PROC: 5A0935A Assistance with Respiratory Ventilation, Less than 24 Consecutive Hours, High Flow/Velocity Cannula (ICD-10-PCS; principal; 2021-12-27)
DX: J96.21 Acute and chronic respiratory failure with hypoxia (principal); I21.A1 Myocardial infarction type 2; E66.2 Morbid (severe) obesity with alveolar hypoventilation; L03.116 Cellulitis of left lower limb; L03.115 Cellulitis of right lower limb; I48.92 Unspecified atrial flutter; J21.8 Acute bronchiolitis due to other specified organisms; I50.20 Unspecified systolic (congestive) heart failure; J98.11 Atelectasis; Z68.41 Body mass index [BMI] 40.0-44.9, adult; J96.22 Acute and chronic respiratory failure with hypercapnia; I48.91 Unspecified atrial fibrillation; I11.0 Hypertensive heart disease with heart failure; J98.4 Other disorders of lung; I77.819 Aortic ectasia, unspecified site; I87.2 Venous insufficiency (chronic) (peripheral); Z99.81 Dependence on supplemental oxygen; Z86.711 Personal history of pulmonary embolism; Z79.01 Long term (current) use of anticoagulants; Z87.01 Personal history of pneumonia (recurrent); Z90.49 Acquired absence of other specified parts of digestive tract; Z79.82 Long term (current) use of aspirin; Z95.5 Presence of coronary angioplasty implant and graft; Z23 Encounter for immunization
CPT/HCPCS: 99222-AI; 99232-AI; 99233-AI; 99239; A9500; J1940; J7050

== ENCOUNTER 2022-02-10 08:58 | Inpatient (IN) | payer MEDICARE ==
[~2022-02-10] VITALS: Ht 182.9 cm; Wt 131.4 kg
[2022-02-10] VITALS (579 sets, daily range): BP systolic 106–113; BP diastolic 67–72; PULSE 71–79; TEMP 97.6–98.9; O2SAT 34–100
[~2022-02-10 08:58] MED LIST changes: +BACTRIM DS 8001 TAB PO; +COZAAR 25MG25 MG/TAB PO; +OXYGEN NASAL.CANN
[2022-02-10 09:24] LABS: ARTERIAL BLD GAS O2 SATURATION 93.8 % (92-100); ARTERIAL BLD GAS TCO2 CT 30.7; ARTERIAL BLOOD GAS BASE EXCESS 3.5 (-2-2); ARTERIAL BLOOD GAS HCO3 29.2 meq/L (22-26); ARTERIAL BLOOD GAS PCO2 48.6 mmHg (35-45); ARTERIAL BLOOD GAS PO2 67.6 mmHg (80-100)
[2022-02-10 09:31] LABS: BASO % 0.3 % (0.0-2.0); EOS # 0.1 K/mm3 (0.0-0.7); GRAN # 4.9 K/mm3 (1.4-6.5); GRAN % 81.3 % (42.2-75.2); HEMATOCRIT 49.9 % (42.0-52.0); HEMOGLOBIN 14.1 g/dl (13.5-18.0); LYMPH # 0.6 K/mm3 (1.2-3.4); LYMPH % 9.2 % (20.0-51.0); MEAN CELL VOLUME 88 fl (80.0-100.0); MEAN CORPUSCULAR HEMOGLOBIN 25 pg (27-31); MEAN CORPUSCULAR HGB CONC 28 g/dl (33.0-37.0); MEAN PLATELET VOLUME 9.8 fl (7.4-10.4); MONO # 0.5 K/mm3 (0.1-0.6); MONO % 7.7 % (1.7-9.3); PLATELET COUNT 168 K/mm3 (130-400); RED BLOOD COUNT 5.68 M/mm3 (4.20-5.60); REDCELL DISTRIBUTION WIDTH-CV 18.9 % (11.5-14.5)
[2022-02-10 09:49] LABS: ALBUMIN 3.5 gm/dL (3.4-4.8); CALCIUM 9.3 mg/dL (8.4-10.2); CREATININE, serum 0.94 mg/dL (0.72-1.25); MAGNESIUM 1.9 mg/dL (1.6-2.6); PHOSPHOROUS 3.3 mg/dL (2.3-4.7); POTASSIUM 4.3 mmol/L (3.5-4.5)
[2022-02-10 09:58] LABS: TROPONIN-I 0.12 ng/mL (0.00-0.033)
[2022-02-10 10:42] LABS: PARTIAL THROMBOPLASTIN TIME 32.6 SECONDS (26.0-37.0)
--- NOTE | 2022-02-10 15:52 | NUR ---
INTAKE ASSESSMENT HARD TO OBTAIN DUE TO BIPAP MASK. WHEN THE PT IS ABLE TO TAKE THE MASK OFF FOR A BREAK, INTAKE ASSESSMENT SHOULD BE RE EVALUATED.
[2022-02-10 15:57] LABS: ARTERIAL BLD GAS O2 SATURATION 92.3 % (92-100); ARTERIAL BLD GAS TCO2 CT 37.4; ARTERIAL BLOOD GAS BASE EXCESS 7.5 (-2-2); ARTERIAL BLOOD GAS HCO3 35.5 meq/L (22-26); ARTERIAL BLOOD GAS PCO2 64.8 mmHg (35-45); ARTERIAL BLOOD GAS pH 7.36 (7.35-7.45)
--- NOTE | 2022-02-10 16:44 | NUR ---
PT APPEARS TO HAVE A RHYTHM CHANGE FROM A SINUS RHYTHM TO A POSSIBLE 3 DEGREE HEART BLOCK. PHYSICIAN NOTIFIED OF CHANGE
--- NOTE | 2022-02-10 16:53 | NUR ---
PT APPEARS TO BE IN A THIRD DEGREE HEART BLOCK. , DR. PAIGE NOTIFIED OF CHANGE. ALL BETA BLOCKERS AND AMIODARONE IS TO BE HELD AT THIS TIME. PT IS TO BE PLACED NPO AT MIDNIGHT FOR POSSIBILITY OF PACEMAKER TOMORROW. PT A ASYMPTOMATIC AT THIS TIME AND RATE CONTROLLED AT 67 BMP.
--- NOTE | 2022-02-10 18:56 | NUR ---
TX GIVEN INLINE WITH BIPAP, TOLERATED WELL.
--- NOTE | 2022-02-10 19:15 | NUR ---
DR. GARRIDO BEDSIDE. SEE PHYSICIAN NOTES.
--- NOTE | 2022-02-10 20:13 | NUR ---
BEDSIDE SHIFT REPORT RECEIVED FROM LALI GALLEGO. PT CURRENTLY RESTING IN BED. BIPAP SETTINGS ACCORDING TO REPORT. IV LINES RUNNING ACCORDING TO REPORT (SEE IV DRIP FLOW SHEET. ROSA DRAINING APPROPRIATELY. NO C/O PAIN OR DISCOMFORT. VSS. NO ACUTE CHANGES NOTED AT THIS TIME.
[2022-02-10 21:28] LABS: ARTERIAL BLD GAS O2 SATURATION 93.2 % (92-100); ARTERIAL BLD GAS TCO2 CT 37.8; ARTERIAL BLOOD GAS BASE EXCESS 9.1 (-2-2); ARTERIAL BLOOD GAS PCO2 58.6 mmHg (35-45); ARTERIAL BLOOD GAS PO2 64.2 mmHg (80-100); ARTERIAL BLOOD GAS pH 7.41 (7.35-7.45)
[2022-02-11] VITALS (1395 sets, daily range): BP systolic 104–135; BP diastolic 70–78; PULSE 72–84; TEMP 98–98.9; O2SAT 55–100
[2022-02-11 05:40] LABS: ARTERIAL BLD GAS O2 SATURATION 94.3 % (92-100); ARTERIAL BLD GAS TCO2 CT 38.8; ARTERIAL BLOOD GAS BASE EXCESS 10.7 (-2-2); ARTERIAL BLOOD GAS HCO3 37.1 meq/L (22-26); ARTERIAL BLOOD GAS PO2 69.6 mmHg (80-100); ARTERIAL BLOOD GAS pH 7.44 (7.35-7.45)
--- NOTE | 2022-02-11 08:00 | NUR ---
SHIFT REPORT RECEIVED. PT WITH BLE +4 PITTING NON-RESOLVING. BL LEGS WRAPED DUE TO SWELLING AND WHEEPING. PT WITH BL LOWER LOBE DIMINISHED SOUNDS. PT USING BI-PAP AND TOLERATING WELL.
[2022-02-11 09:08] LABS: BASO % 0.4 % (0.0-2.0); EOS # 0.1 K/mm3 (0.0-0.7); EOS % 1.2 % (0.0-4.0); GRAN # 3.7 K/mm3 (1.4-6.5); GRAN % 75.5 % (42.2-75.2); HEMATOCRIT 45.3 % (42.0-52.0); HEMOGLOBIN 13.3 g/dl (13.5-18.0); LYMPH # 0.7 K/mm3 (1.2-3.4); LYMPH % 13.8 % (20.0-51.0); MEAN CELL VOLUME 85 fl (80.0-100.0); MEAN CORPUSCULAR HEMOGLOBIN 25 pg (27-31); MEAN CORPUSCULAR HGB CONC 29 g/dl (33.0-37.0); MEAN PLATELET VOLUME 9.6 fl (7.4-10.4); MONO # 0.4 K/mm3 (0.1-0.6); MONO % 8.7 % (1.7-9.3); PLATELET COUNT 152 K/mm3 (130-400); RED BLOOD COUNT 5.31 M/mm3 (4.20-5.60); REDCELL DISTRIBUTION WIDTH-CV 18.6 % (11.5-14.5)
[2022-02-11 09:26] LABS: C-REACTIVE PROTEIN 2.44 mg/dL (0.00-0.50); CALCIUM 8.9 mg/dL (8.4-10.2); CREATININE, serum 0.83 mg/dL (0.72-1.25); MAGNESIUM 1.7 mg/dL (1.6-2.6); POTASSIUM 3.9 mmol/L (3.5-4.5)
[2022-02-11 09:40] LABS: TROPONIN-I 0.137 ng/mL (0.00-0.033)
--- NOTE | 2022-02-11 10:47 | NUR ---
Initial visit; Patient thanked Occupational Medicine Officer for looking in on him and offering God's blessings and wishing him well. Patient appeared a little upset and thanked Occupational Medicine Officer for keeping him in her prayers.
--- NOTE | 2022-02-11 12:13 | NUR ---
SW met with patient to complete intake. Patient reports that he lives at home with his daughter Lucille ([phone]) in [place]. Patient states that Lucille has bipolar and they each take care of each other. Patient states that he is independent with his ADL's and has a cane to assist with ambulation but "i don't use it". Patient is on 3L of NC o2 at baseline that is managed through [place]. PCP is and he utilizes [facility] for prescriptions. Patient has a DPOA-HC established located in his EMR listing his sister Cynthia ([phone]). Per Darwin, patient is having trouble affording his medications. SW spoke with the patient about this who states that " sometimes they're $30-$40 a month and sometimes it's $300 a month. I can do the $30-$40 but i can't afford the $300 and i have to pull from my 401K". Patient reports that he has never applied for NICOLAS. Educated him that i will reach out to our financial counselor to assist with looking into NICOLAS. Email sent to Ernie.
--- NOTE | 2022-02-11 19:11 | NUR ---
PT PLACED BACK ON BIPAP. TX GIVEN INLINE WITH BIPAP, TOLERATED WELL.
--- NOTE | 2022-02-11 20:09 | NUR ---
Assessment complete and charted. Patient denies needs. Call light in reach.
[2022-02-12] VITALS (871 sets, daily range): BP systolic 104–123; BP diastolic 62–89; PULSE 74–82; TEMP 97.4–99.1; O2SAT 68–100
[2022-02-12 03:09] LABS: HEMATOCRIT 44.2 % (42.0-52.0); HEMOGLOBIN 13.5 g/dl (13.5-18.0); MEAN CELL VOLUME 83 fl (80.0-100.0); MEAN CORPUSCULAR HEMOGLOBIN 25 pg (27-31); MEAN CORPUSCULAR HGB CONC 31 g/dl (33.0-37.0); MEAN PLATELET VOLUME 9.5 fl (7.4-10.4); PLATELET COUNT 154 K/mm3 (130-400); RED BLOOD COUNT 5.34 M/mm3 (4.20-5.60); REDCELL DISTRIBUTION WIDTH-CV 18.2 % (11.5-14.5)
[2022-02-12 03:25] LABS: CALCIUM 8.9 mg/dL (8.4-10.2); CREATININE, serum 0.96 mg/dL (0.72-1.25); MAGNESIUM 1.8 mg/dL (1.6-2.6); POTASSIUM 3.9 mmol/L (3.5-4.5)
--- NOTE | 2022-02-12 06:04 | NUR ---
Patient remained on bipap throughout night. Denies needs this AM. Call light in reach.
--- NOTE | 2022-02-12 07:25 | NUR ---
Report given to Yosef RN
--- NOTE | 2022-02-12 08:00 | NUR ---
SHIFT REPORT RECEIVED. PT TOLERATING BI-PAP AND O2 NC WELL. STILL HAVING SOB WITH EXERTION. PT ENCOURAGED TO PREFORM ORAL INDEPENDENTLY.
--- NOTE | 2022-02-12 14:50 | NUR ---
TRANSFER OF CARE REPORT GIVEN TO INGRID ESCALERA. PT TAKEN TO ROOM VIA WHEELCHAIR, O2 AND ON TELLY. PT TRANSFERED TO ROOM WITH INGRID ESCALERA PRESENT WITHOUT COMPLICATIONS. PT TOLERATED TRANSFER WELL.
--- NOTE | 2022-02-12 15:23 | NUR ---
galley worker notified by hospitalist that the patient will need a [facility] Eval for pulmonary condition and overall weakness. Contact made with Nga at [facility] and clinical referral faxed. Patient's sister Cynthia who is also the patient's DPOA-HC notified of the above and is in agreement with the plan. Cynthia states that the patient was living with her and doing "the things he needed to do" until his daughter got an apartment and he moved in with her. She states that since that time the patient has not been taking care of himself.
--- NOTE | 2022-02-12 18:37 | NUR ---
Pt transferred from ICU. A&O x4. VSS. A&O X4. Assessment completed. O2 at 6L. Telemetry on place. Peripheral line on left hand CDI, no edema or redness. INT on right antecubital arm CDI, no edema or redness. Pt denies any disconfort or pain at the time. Call light within reach.
--- NOTE | 2022-02-12 20:41 | NUR ---
Patient assessed around 193. Denies pain and discomfort. Heparin drip running per orders, recheck HepXa in the morning. Recieved IV Lasix per orders. Indwelling olguin catheter patent, draining clear yellow urine via dependent drainage. 4+ edema BLE, with scaling/flaking/cracks. Dressings to ulcers on BLE are CDI. On oxygen at 6 L/min via NC. RT to put patient on Bipap for 3 hours, then off for 3 hours, and repeat. Patient reports his SOB has gotten better. Voices no questions, needs, or concerns at this time. In bed with call light within reach.
[2022-02-13 04:08] VITALS: BP 123/65; PULSE 69; TEMP 97.9
--- NOTE | 2022-02-13 05:56 | NUR ---
Patient wore BIPAP most of night. On oxygen at 6 L/min via NC at this time. Denies having pain and discomfort. Continues on Heparin drip per orders. Voices no questions, needs, or concerns at this time. In bed with call light within reach.
[2022-02-13 06:56] LABS: BASO % 0.4 % (0.0-2.0); EOS # 0.1 K/mm3 (0.0-0.7); EOS % 1.3 % (0.0-4.0); GRAN % 76.6 % (42.2-75.2); HEMATOCRIT 45.6 % (42.0-52.0); HEMOGLOBIN 13.6 g/dl (13.5-18.0); LYMPH # 0.6 K/mm3 (1.2-3.4); LYMPH % 11.7 % (20.0-51.0); MEAN CELL VOLUME 83 fl (80.0-100.0); MEAN CORPUSCULAR HEMOGLOBIN 25 pg (27-31); MEAN CORPUSCULAR HGB CONC 30 g/dl (33.0-37.0); MEAN PLATELET VOLUME 10.1 fl (7.4-10.4); MONO # 0.5 K/mm3 (0.1-0.6); MONO % 9.4 % (1.7-9.3); PLATELET COUNT 173 K/mm3 (130-400); RED BLOOD COUNT 5.48 M/mm3 (4.20-5.60); REDCELL DISTRIBUTION WIDTH-CV 18.6 % (11.5-14.5)
[2022-02-13 07:09] LABS: CREATININE, serum 0.98 mg/dL (0.72-1.25)
[2022-02-13 08:14] VITALS: BP 113/69; PULSE 79; TEMP 97.3
--- NOTE | 2022-02-13 08:36 | NUR ---
PT SITTING UP IN BED. MORNING MEDICATIONS GIVEN. SHIFT ASSESSMENT COMPLETED. PT DENIES ANY PAIN AT THIS TIME. ROSA IN PLACE, DRAINING WELL. HEPARIN GTT INFUSING. PT DENIES ANY NEEDS AT THIS TIME. DRESSING INTACT TO BLE AND WRAPPED WITH WINNIE WRAPS. WILL CONTINUE TO MONITOR.
[2022-02-13 12:45] VITALS: BP 117/90; PULSE 82; TEMP 97.6
--- NOTE | 2022-02-13 14:25 | NUR ---
Lisa: [facility] Situation: Consulting Sme stopped by room on rounds Background: PT was resting and content Assessment: PT has no needs and appreciated the visit Recommendation: Consulting Sme will follow up as needed
--- NOTE | 2022-02-13 14:36 | NUR ---
Salvage Machine Operator faxed clinical updates to Nga at [facility] who advised she has submitted for authorization through [employer] and it's pending at this time. SW met with patient to review discharge plan. Patient is agreeable to discharge to [facility] once authorization is secured. Discharge Plan: [facility]
--- NOTE | 2022-02-13 16:05 | NUR ---
Java Tech received a phone call from [facility] and was advised they are denying auth for LTACH as it lacks support for need. [facility] RN advised patient's needs can be met at SNF. Peer to peer offerred and phone number is [phone]. MAGUI updated Hospitalist and will follow up on SNF referrals.
[2022-02-13 16:14] VITALS: BP 102/63; PULSE 87; TEMP 98.4
[2022-02-13 20:14] VITALS: BP 107/64; PULSE 90; TEMP 97.6
--- NOTE | 2022-02-13 20:37 | NUR ---
Patient on oxygen at 5 L/min via NC. Sitting up in recliner at this time. Continues on Heparin drip per orders, recheck HepXa in the morning per protocol. Voices no questions, needs, or concerns at this time. In recliner with call light within reach.
[2022-02-14 00:15] VITALS: BP 109/64; PULSE 79; TEMP 98
[2022-02-14 04:12] VITALS: BP 111/72; PULSE 76; TEMP 98
--- NOTE | 2022-02-14 05:55 | NUR ---
Patient slept in recliner during the night. Wore BIPAP most of night. Now on oxygen at 5 L/min via NC. Voices no questions, needs, or concerns at this time. Call light within reach.
[2022-02-14 06:44] LABS: CALCIUM 9.9 mg/dL (8.4-10.2); CREATININE, serum 1.18 mg/dL (0.72-1.25); POTASSIUM 4.2 mmol/L (3.5-4.5)
[2022-02-14 06:50] LABS: MEAN CELL VOLUME 84 fl (80.0-100.0); MEAN CORPUSCULAR HGB CONC 30 g/dl (33.0-37.0); MEAN PLATELET VOLUME 10.2 fl (7.4-10.4); PLATELET COUNT 180 K/mm3 (130-400); RED BLOOD COUNT 6.52 M/mm3 (4.20-5.60); REDCELL DISTRIBUTION WIDTH-CV 19.2 % (11.5-14.5)
[2022-02-14 06:52] LABS: HEMATOCRIT 54.5 % (42.0-52.0); HEMOGLOBIN 16.4 g/dl (13.5-18.0); MEAN CORPUSCULAR HEMOGLOBIN 25 pg (27-31)
[2022-02-14 07:16] VITALS: BP 110/636; PULSE 78; TEMP 98.1; TEMP 98.2
[2022-02-14 08:21] LABS: EOSINOPHIL 1 % (0-4); LYMPHOCYTE 13 % (20.0-51.0); NEUTROPHILS 82 % (42.0-75.2); PLATELET ESTIMATE NORMAL (NORMAL)
--- NOTE | 2022-02-14 08:51 | NUR ---
PT SITTING UP IN RECLINER. MORNING MEDICATIONS GIVEN. SHIFT ASSESSMENT COMPLETED. PT DENIES ANY PAIN OR NEEDS. PT BLE ELEVATED IN RECLINER, APPEAR A RED/PURPLE COLOR, EDUCATED PT ON KEEPING THEM ELEVATED AND MOVING THEM. UPDATED PT ON POC. WILL CONTINUE TO MONITOR.
--- NOTE | 2022-02-14 10:59 | NUR ---
Binder Technician met with patient to provide update on [employer] denying LTACH. SW discussed in network SNFs with patient including [facility] and [facility]. Patient inquired about returning home with Home Health. SW followed up with Hospitalist who feels SNF placement is needed for patient. Following rounds, SW followed up with patient who advised he didn't like the recommendation, but understands it. Patient agreeable to referrals to [facility] and [facility]. SW faxed referrals and also faxed clinicals to [facility] to submit for SNF authorization. SW collaborated with Pharmacist who provided resource card for Xarelto. SW met with patient who advised he was on Xarelto and would fill it when he was able to afford it. SW provided resource card and reviewed how to set it up with patient who verbalized understanding. Discharge Plan: SNF referrals pending
[2022-02-14 11:45] VITALS: BP 110/60; PULSE 80; TEMP 98
--- NOTE | 2022-02-14 13:19 | NUR ---
[facility] declined referral. Greta at [facility] is reviewing referral and waiting on insurance authorization.
[2022-02-14 16:00] VITALS: BP 127/67; PULSE 73
--- NOTE | 2022-02-14 20:20 | NUR ---
Patient assessed around 1950. Alert and oriented. Denies pain and discomfort. Did have a large BM. On oxygen at 3 L/min via NC. Voices no questions, needs, or concerns at this time. In bed recliner with call light within reach.
[2022-02-14 20:47] VITALS: BP 106/65; PULSE 81; TEMP 97.8
[2022-02-15 00:08] VITALS: BP 115/73; PULSE 73; TEMP 98.1
[2022-02-15 04:53] VITALS: BP 131/95; PULSE 75; TEMP 97.5
--- NOTE | 2022-02-15 05:28 | NUR ---
Patient has been getting up and moving around in room tonight. On oxygen at 3 L/min via NC. Patient states he is trying really hard to just go home instead of a nursing facility. In recliner with call light within reach.
--- NOTE | 2022-02-15 07:30 | NUR ---
CRITICAL HEPXA CALLED TO [facility], WHO READ BACK THE RESULTS.
--- NOTE | 2022-02-15 08:00 | NUR ---
Pt sitting down in recliner. Shift assessment completed. Skin around right arm INT looks elevated and pt states it feels uncomfortable. No reddness or pain. Reported to charge nurse. A&O x4. VSS. Pt is requesting to go home instead of a custodial. Telemetry on place. O2 at 2L per min. Folley in place. Pt denies any pain, N/V or dizziness. Call light within reach.
[2022-02-15 08:01] VITALS: BP 104/66; PULSE 85; TEMP 98
[2022-02-15 09:19] LABS: CALCIUM 9.7 mg/dL (8.4-10.2); CREATININE, serum 1.3 mg/dL (0.72-1.25); MAGNESIUM 2.4 mg/dL (1.6-2.6); POTASSIUM 5.1 mmol/L (3.5-4.5)
[2022-02-15] MEDS ORDERED: LIPITOR 80MG80 MG PO (10:05)
[2022-02-15] MEDS ORDERED: TOPROL XL 25MG25 MG PO (10:05)
[2022-02-15] MEDS ORDERED: ASPIRIN 81M81 MG/TA2 PO (10:06)
[2022-02-15] MEDS ORDERED: BACTRIM DS 8001 TAB PO (10:08)
[2022-02-15] MEDS ORDERED: PROTONIX 40MG T40 MG PO (10:08)
[2022-02-15 11:04] VITALS: BP 112/65; PULSE 77; TEMP 98.1
[2022-02-15 12:39] VITALS: BP 112/65; PULSE 77; TEMP 98.1
--- NOTE | 2022-02-15 13:20 | NUR ---
[facility] Lab spoke with Greta at [facility] who advised they can accept today once auth is secured. MAGUI contacted [facility] and provided facility information. [facility] fuels sales representative advised auth is approved and they will contact [facility] to provide information. MAGUI contacted [facility] who advised they will accept today and transport time is set for 1330. MAGUI attended clinical rounds with the team and patient is agreeable to placement at [facility]. Patient states his daughter will be disappointed he isn't going home, however understands the benefits. MAGUI presented IM form to patient who verbalized understanding and provided signature. MAGUI placed form in chart and provided copy to patient. MAGUI contacted patient's sister, Cynthia and notified her that patient will discharge to [facility] today. She is in agreement. MAGUI faxed discharge orders and covid results to Greta at [facility]. Discharge Plan: [facility] today
--- NOTE | 2022-02-15 14:51 | NUR ---
Pt discharged with VSS. A&O x4. INT on left hand discontinued. CDI. Folley catheter DC. Pt denies any pain or disconfort at the time. Provided pt education on his condition. Scorted out with staff member. Pt transferring to [facility]. Report given to Nurse Layton.
== END 2022-02-15 14:10 | DRG 280 ==
LOC: COL.ER 08:58 → MEDICAL 10:46 → ICU 10:46 → MEDICAL 02-12 15:18
PROVIDERS: Emergency Medicine; Internal Medicine Pulmonary Disease; Nurse Practitioner; Physician Assistant; ADMIT Internal Medicine
DX: I11.0 Hypertensive heart disease with heart failure (principal); I21.A1 Myocardial infarction type 2; J96.22 Acute and chronic respiratory failure with hypercapnia; J96.21 Acute and chronic respiratory failure with hypoxia; I50.33 Acute on chronic diastolic (congestive) heart failure; E66.2 Morbid (severe) obesity with alveolar hypoventilation; E87.2 Acidosis; I48.92 Unspecified atrial flutter; L97.829 Non-pressure chronic ulcer of other part of left lower leg with unspecified severity; L97.819 Non-pressure chronic ulcer of other part of right lower leg with unspecified severity; Z68.41 Body mass index [BMI] 40.0-44.9, adult; I45.10 Unspecified right bundle-branch block; I44.0 Atrioventricular block, first degree; Z20.822 Contact with and (suspected) exposure to COVID-19; E87.70 Fluid overload, unspecified; I50.22 Chronic systolic (congestive) heart failure; I49.3 Ventricular premature depolarization; I87.8 Other specified disorders of veins; I48.91 Unspecified atrial fibrillation; B96.89 Other specified bacterial agents as the cause of diseases classified elsewhere; Z91.14 Patient's other noncompliance with medication regimen; Z99.81 Dependence on supplemental oxygen; Z95.5 Presence of coronary angioplasty implant and graft; Z87.01 Personal history of pneumonia (recurrent); Z90.49 Acquired absence of other specified parts of digestive tract; Z87.891 Personal history of nicotine dependence; Z79.01 Long term (current) use of anticoagulants; Z86.711 Personal history of pulmonary embolism; Z86.718 Personal history of other venous thrombosis and embolism; Q82.0 Hereditary lymphedema; Z23 Encounter for immunization
CPT/HCPCS: A9284; J1644; J1940; J2543

== ENCOUNTER 2022-10-28 23:08 | Inpatient (IN) | payer MEDICARE ==
[~2022-10-28] VITALS: Ht 188 cm; Wt 150.6 kg
[~2022-10-28 23:08] MED LIST changes: +ASPIRIN 81M81 MG/TA2 PO; +LIPITOR 80MG80 MG PO; +PROTONIX 40MG T40 MG PO
[2022-10-28] MEDS ORDERED: COZAAR 25MG25 MG/TAB PO (23:16)
[2022-10-28] MEDS ORDERED: LASIX 80MG TABL80 MG PO (23:16)
[2022-10-28] MEDS ORDERED: K-TAB10 PO (23:17)
[2022-10-29] VITALS (12 sets, daily range): BP systolic 79–121; BP diastolic 46–66; PULSE 78–93; TEMP 98.6–102
[2022-10-29 02:04] LABS: INR 1.1 (0.8-3.0)
[2022-10-29 02:10] LABS: C-REACTIVE PROTEIN 1.38 mg/dL (0.00-0.50); PHOSPHOROUS 2.9 mg/dL (2.3-4.7)
--- NOTE | 2022-10-29 02:11 | NUR ---
Patient arrived to medical unit from [place] [facility] at approximately 0045 via EMS. Patient drowy, had Ativan prior to leaving hospital. Is alert and oriented x 4. Denies having pain and discomfort. Peripheral INT to left AC. On oxygen at 3 L/min via NC, which is baseline for patient. Reports SOB with exertion for laying flat. Patient has redness/open area to buttock, mepilex applied. BLE red/warm, open areas with drainage. Indwelling olguin catheter with clear yellow urine. Voices no questions, needs, or concerns at this time. In bed with call light within reach. Bed alarm on.
[2022-10-29 02:12] LABS: COLLECTION METHOD CLEAN CATCH
[2022-10-29 02:17] LABS: MUCOUS Present (NOT PRESENT); SQUAMOUS EPITHELIAL None Seen /hpf (0-10); URINE BACTERIA None Seen /hpf (NONE SEEN); URINE RBC None Seen /hpf (0-2)
[2022-10-29 02:22] LABS: THYROID STIMULATING HORMONE 3.202 uIU/mL (0.350-4.940)
[2022-10-29 02:23] LABS: URINE APPEARANCE Clear (CLEAR/HAZY); URINE BLOOD Negative (NEGATIVE); URINE COLOR Yellow (YELLOW); URINE GLUCOSE Negative (NEGATIVE); URINE KETONE Negative (NEGATIVE); URINE NITRATE Negative (NEGATIVE); URINE PROTEIN(semi-quant) Negative (NEGATIVE); URINE UROBILINOGEN 0.2 E.U/dL (0.2-1.0)
[2022-10-29 02:24] LABS: TROPONIN-I 0.077 ng/mL (0.00-0.033)
[2022-10-29 02:42] LABS: ARTERIAL BLD GAS O2 SATURATION 93.6 % (92-100); ARTERIAL BLD GAS TCO2 CT 32.7; ARTERIAL BLOOD GAS BASE EXCESS 5.4 (-2-2); ARTERIAL BLOOD GAS HCO3 31.1 meq/L (22-26); ARTERIAL BLOOD GAS PCO2 50.9 mmHg (35-45); ARTERIAL BLOOD GAS PO2 68.9 mmHg (80-100)
--- NOTE | 2022-10-29 05:16 | NUR ---
67 yo male admitted for further care and management of acute on chronic respiratory failure, heart failure with exacerbation, and additional concerns for sepsis likely secondary to b/l lower extremity wounds. ht 182.9 cm wt 145.5 kg (adj wt 104.8 kg) SCr 1.29 with estimated CrCl >60 ml/min half life 16.5 hours Plan: Patient is unlikely to follow population based kinetics secondary to body habitus (BMI 43.4 kg/m2). Will give an initial loading dose of vancomycin 3000 mg x1 (20.6 mg/kg); followed by a maintenance regimen of vancomycin 1500 mg q18h to target a goal trough of 10-15 mcg/ml. Will follow patient's renal function, micro data, and vancomycin levels as indicated to assess for any necessary changes to regimen. Thank you for this dosing consult.
--- NOTE | 2022-10-29 05:39 | NUR ---
Patient denied pain and discomfort this shift. Received IV ABX per orders. Remains on oxygen at 3 L/min via NC. Recieved IV Lasix per orders. Voices no questions, needs, or concerns at this time. In bed with call light within reach.
--- NOTE | 2022-10-29 07:30 | NUR ---
PATIENT AWAKE AND ALERT, RESTING IN BED. INSTRUCTED NOT TO EAT OR DRINK UN TIL WE HEAR FROM CARDIOLOGY. PATIENT IS AGREEABLE. PATIENTS CALL LIGHT WITHIN REACH.
[2022-10-29 07:47] LABS: CALCIUM 7.5 mg/dL (8.4-10.2); CHOLESTEROL RISK RATIO 3.6; CREATININE, serum 1.28 mg/dL (0.72-1.25); POTASSIUM 4.3 mmol/L (3.5-4.5)
--- NOTE | 2022-10-29 11:30 | NUR ---
ALERTED BY PCT PATIENTS BP OF 88/56 AND RETRY WAS 79/49. HR IS AFIB ON MONITOR 80-90S. THIS RN WENT TO ASSESS PATIENT. PATIENT SITTING UP IN BED EATING APPLE SAUCE, PATIENT ONLY COMPLAINT IS HE IS TIRED. WILL INFORM PA.
--- NOTE | 2022-10-29 11:45 | NUR ---
WOUND CARE CONSULT MADE. SAGRARIO AT WOUND CARE OFFICE AWARE.
--- NOTE | 2022-10-29 11:52 | NUR ---
CALL RECIEVED FROM GARCIA THAT PER MD GRECIA Altman SIN AGREEMENT TO HOLD IV LASIX D/T PRESSURE.
--- NOTE | 2022-10-29 12:35 | NUR ---
PATIENT AWAKE AND ALERT, RESTING IN BED. PATIENT DENEIS ANY NEEDS OR COMPLAINTS AT THIS TIME. PATIENT RESTING IN BED. ROSA PATENT AND DRAINING WITH A LARGE AMOUNT OF OUTPUT.
--- NOTE | 2022-10-29 12:58 | NUR ---
SW met with patient to complete intake and discuss discharge plan. Patient reports that he lives in [place] with his daughter Lucille([phone]). He reports to being fully independent with his ADL's and IADL's. He will utilize a cane prn to assist with mobility. He is on 3L of NC oxygen at baseline 10/02 that is managed through [facility] in [place]. PCP is and he utilizes [facility] for prescriptions. Patient verblaizes that he does not have a DPOA-HC established and does not wish to create one at this time. Patient is planning on returning home once medically ready. Discharge plan: Home *pending* PT/OT rec's.
--- NOTE | 2022-10-29 14:11 | NUR ---
PA AWARE PATIENT WITH POOR ACCESSS, CARLOSBE TO AUTHORIZE A PICC AT THIS TIME D/T TEMP SPIKE. PICC LINE LAST RESORT.
--- NOTE | 2022-10-29 14:25 | NUR ---
ATTEMPTED TO SPEAK AWITH [facility] 2 TIMES, NO ANSWER, EVERARDO CALLED.
--- NOTE | 2022-10-29 14:26 | NUR ---
CALL RECIEVED FROM [facility]. ONLY PERIPHERAL COBOL ENGINEER HAD IS NOW BLOW, PROGRESSIVE DIE MAKER IN ROOM AND ATTEMPTING. [facility] ON THE WAY.
--- NOTE | 2022-10-29 14:46 | NUR ---
[facility] SUCCESFUL WITH IV PLACE TO JERRY. PATIENTS BOLUS INFUSING. PATIENT EASILY AROUSES TO NAME. BP CHECK IN 30 MINUTES
[2022-10-29 14:53] LABS: MEAN CELL VOLUME 77 fl (80.0-100.0); MEAN CORPUSCULAR HGB CONC 29 g/dl (33.0-37.0); MEAN PLATELET VOLUME 9.9 fl (7.4-10.4); PLATELET COUNT 286 K/mm3 (130-400); REDCELL DISTRIBUTION WIDTH-CV 19.4 % (11.5-14.5)
[2022-10-29 14:55] LABS: HEMATOCRIT 31.6 % (42.0-52.0); HEMOGLOBIN 9.3 g/dl (13.5-18.0); MEAN CORPUSCULAR HEMOGLOBIN 23 pg (27-31)
--- NOTE | 2022-10-29 15:03 | NUR ---
PATIET AWAKE, RESPIRATORY IN ROOM GIVING BREATHING TRETMENT.
[2022-10-29 15:21] LABS: EOSINOPHIL 1 % (0-4); LYMPHOCYTE 7 % (20.0-51.0); MYELOCYTE 2 % (0-0); NEUTROPHILS 83 % (42.0-75.2); NUCLEATED RED BLOOD CELL 5 (0-6)
[2022-10-29 15:22] LABS: MICROCYTOSIS 1+
[2022-10-29 15:27] LABS: ANISOCYTOSIS 2+; HYPOCHROMIA 3+; PLATELET ESTIMATE NORMAL (NORMAL)
--- NOTE | 2022-10-29 15:58 | NUR ---
PATIENT RESTING IN BED. STILL COMPLAINTS OF BEING TIRED. PATIENT DENIES ANY NEEDS OR OTHER COMPLAINTS AT THIS TIME. CALL LIGHT WITHIN REACH. PATIENT ECOURAGED TO TURN Q2H AND RELEIVE SOME OF THE PRESSURE FROM HIS SACRUM.
--- NOTE | 2022-10-29 18:45 | NUR ---
PATIENT AWAKE AND ALERT, RESTING IM BED. PATIENTS BLOOD PRESSURE STABLE. CALL LIGHT WTIHIN REACH.
--- NOTE | 2022-10-29 22:36 | NUR ---
Patient assessed around 193. Alert and oriented. Denies having pain and discomfort. Midline to right upper arm with IV ABX running per orders. Denies SOB and dsypena. On oxygen at 2.5 L/min via NC. LS diminished. Denies cough. HRI. Telemetry showing A-fib, rate controlled. BSAx4. Wounds to BLE open to air. Drainainge yellow/bloody drainage. Cleansed with normal saline. Denies having any feeling to BLE and bilateral feet. Voices no questions, needs, or concerns at this time. In bed with call light within reach.
[2022-10-30 04:09] VITALS: BP 122/59; PULSE 77; TEMP 98.4
--- NOTE | 2022-10-30 04:55 | NUR ---
Patient has denied pain and discomfort this shift. Received IV ABX per orders. Voices no questions, needs, or concern at this time. In bed with call light within reach.
[2022-10-30 07:02] LABS: CALCIUM 7.5 mg/dL (8.4-10.2); CREATININE, serum 0.99 mg/dL (0.72-1.25); POTASSIUM 4.3 mmol/L (3.5-4.5)
[2022-10-30 08:22] LABS: PATHOLOGY DIFF REVIEW OK
[2022-10-30 08:37] VITALS: BP 121/57; PULSE 77; TEMP 98.1
--- NOTE | 2022-10-30 09:25 | NUR ---
Initial visit; Patient thanked Stereotype Caster for stopping and offering God's blessings. Patient in pain due to his feet. Stereotype Caster will keep Benedict in her prayers due to his request.
[2022-10-30 11:45] LABS: MEAN CELL VOLUME 77 fl (80.0-100.0); MEAN CORPUSCULAR HGB CONC 29 g/dl (33.0-37.0); MEAN PLATELET VOLUME 9.5 fl (7.4-10.4); PLATELET COUNT 257 K/mm3 (130-400); RED BLOOD COUNT 3.91 M/mm3 (4.20-5.60); REDCELL DISTRIBUTION WIDTH-CV 19.4 % (11.5-14.5)
[2022-10-30 11:53] LABS: HEMATOCRIT 30.2 % (42.0-52.0); HEMOGLOBIN 8.7 g/dl (13.5-18.0); MEAN CORPUSCULAR HEMOGLOBIN 22 pg (27-31)
[2022-10-30 12:35] LABS: BAND 2 % (0-10); BASOPHIL 1 % (0-2); LYMPHOCYTE 11 % (20.0-51.0); METAMYELOCYTE 2 % (0-0); MYELOCYTE 2 % (0-0); NEUTROPHILS 71 % (42.0-75.2); NUCLEATED RED BLOOD CELL 3 (0-6)
[2022-10-30 12:36] LABS: HYPOCHROMIA 3+; MICROCYTOSIS 1+; PLATELET ESTIMATE NORMAL (NORMAL); POLYCHROMASIA 1+
[2022-10-30 12:37] LABS: ANISOCYTOSIS 2+
[2022-10-30 12:50] VITALS: BP 101/61; PULSE 78; TEMP 98.7
[2022-10-30 15:44] VITALS: BP 101/52; PULSE 78; TEMP 97.8
--- NOTE | 2022-10-30 18:00 | NUR ---
Patient had an uneventful day. Was started on vanc. Midline IV to right upper arm flushes well. Remains in A Fib on tele. O2@3L/NC. FLuid restriction enforced. Matthews cath with pink dark yellow urine occasional clot. Wound culture sent to lab. Denies current quesitons/concerns. Call liggt in reach. Will monitor.
[2022-10-30 20:21] VITALS: BP 98/47; PULSE 85; TEMP 98.4
--- NOTE | 2022-10-30 23:30 | NUR ---
Patient assessed around 2225. Alert and oriented, and able to make needs known. Complained of nausea. Given sprite as requested. Denies other pain and discomfort. Midline to RUE very positional. Continues on IV ABX per orders. On oxygen at 3 L/min via NC. Voices no further questions, needs, or concerns at this time. In bed with call light within reach.
[2022-10-31 00:03] VITALS: BP 105/56; PULSE 110; TEMP 99.2
--- NOTE | 2022-10-31 03:09 | NUR ---
PT WAS UP WITH NAUSEA UPSET STOMACH THROUGH THE NIGHT. HELD CPAP DUE TO THIS AND PATIENT AGREED.
[2022-10-31 04:22] VITALS: BP 109/56; PULSE 77; TEMP 98.5
--- NOTE | 2022-10-31 05:17 | NUR ---
Patient requested to get out of bed around 0300. Assisted up and onto bench in room as requested. Call light within reach. Patient did well with transfer, stand by assist with walker. Given Acetaminophen as requested for headache. Continues on oxygen at 3 L/min via NC. Received IV ABX per orders. Voices no further questions, needs, or concerns at this time. In bench with call light within reach.
[2022-10-31 07:34] LABS: CALCIUM 8.1 mg/dL (8.4-10.2); CREATININE, serum 1.11 mg/dL (0.72-1.25); POTASSIUM 4.3 mmol/L (3.5-4.5)
[2022-10-31 07:54] VITALS: BP 108/63; PULSE 60; TEMP 98
--- NOTE | 2022-10-31 08:00 | NUR ---
PT IS SITTING UP THIS AM. SHIFT ASSESSMENT PERFORMED. VS WNL, SEE DOCUMENTATION. NO FURTHER REQUESTS AT THIS TIME.
--- NOTE | 2022-10-31 10:52 | NUR ---
SW met with patient to discuss discharge and post acute rehab. Patient is looking at moving to the [place] area so would like placement around there but is open to facilities in [place]. Clinical referral sent to [facility] [place] [facility]
[2022-10-31 11:32] VITALS: BP 121/63; PULSE 67; TEMP 98.3
--- NOTE | 2022-10-31 15:37 | NUR ---
Telehealth visit conducted with Dr. Jb Barbosa, Infectious Disease. Patient consented to visit. Telecommunication initiated without any difficulties during exam. All questions were answered by Dr. Barbosa
--- NOTE | 2022-10-31 17:00 | NUR ---
Rec'd call from telemetry, reports poss complete heart block. Contact provider, order EKG, notify RT.
[2022-10-31 20:16] VITALS: BP 107/51; PULSE 77; TEMP 97.9
--- NOTE | 2022-10-31 22:01 | NUR ---
Patient assessed around 2130. Alert and oriented, and able to make needs known. Denies having pain and discomfort. Midline to RUE with IV ABX running per orders. On oxygen at 3 L/min via NC, which is baseline for patient. BLE cleansed, pat dried, and MARGARITO boots applied to BLE wrapped with coban. Patient in bed with call light with reach. Voices no questions, needs, or concerns at this time.
[2022-10-31 23:46] VITALS: BP 112/61; PULSE 70; TEMP 97.9
[2022-11-01 03:57] VITALS: BP 106/47; PULSE 77; TEMP 98.3
--- NOTE | 2022-11-01 06:06 | NUR ---
Received IV ABX per orders. Remains on oxygen at 3 L/min via NC. Denies pain and discomfort. Was not able to tolerate CPAP during the night, stated that it was too much pressure and made it hard for him to breathe. RT was notified, and stated that it was on the lowest settings. Took CPAP off and placed back on NC per patient's request. In bed with call light within reach.
[2022-11-01 06:34] LABS: MEAN CELL VOLUME 78 fl (80.0-100.0); MEAN CORPUSCULAR HGB CONC 28 g/dl (33.0-37.0); PLATELET COUNT 263 K/mm3 (130-400); RED BLOOD COUNT 4.12 M/mm3 (4.20-5.60); REDCELL DISTRIBUTION WIDTH-CV 19.4 % (11.5-14.5)
[2022-11-01 06:43] LABS: CALCIUM 7.9 mg/dL (8.4-10.2); POTASSIUM 4.3 mmol/L (3.5-4.5)
[2022-11-01 06:51] LABS: HEMATOCRIT 32.3 % (42.0-52.0); HEMOGLOBIN 9.1 g/dl (13.5-18.0); MEAN CORPUSCULAR HEMOGLOBIN 22 pg (27-31)
[2022-11-01 07:22] VITALS: BP 93/54; PULSE 74; TEMP 98.6
--- NOTE | 2022-11-01 07:37 | NUR ---
Pt SITTING UP IN BED THIS AM. SHIFT ASSESSMENT PERFORMED, SEE DOCUMENTATION. Pt COMPLAINS OF PAIN AND TENDERNESS TO TOUCH IN ABDOMINAL AREA. RUE IV SITE LOCKED AND CLAMPED. BED IN LOW POSIITON CALL LIGHT IN REACH. NO FURTHER REQUESTS AT THIS TIME.
[2022-11-01 08:03] LABS: BAND 2 % (0-10); BASOPHIL 1 % (0-2); LYMPHOCYTE 8 % (20.0-51.0); NEUTROPHILS 81 % (42.0-75.2)
[2022-11-01 08:04] LABS: ANISOCYTOSIS 2+; HYPOCHROMIA 3+; PLATELET ESTIMATE NORMAL (NORMAL)
--- NOTE | 2022-11-01 08:18 | NUR ---
Unable to palpate pedal pulses through unna boots, also unable to use doppler dt unna boots.
[2022-11-01 11:23] VITALS: BP 105/53; PULSE 74; TEMP 98.1
--- NOTE | 2022-11-01 12:12 | NUR ---
Spoke with [facility] requesting copy of wound culture. Medical records states they do not have results for a wound culture unless they show up in todays reports. Fax number given-will fax if in todays reports.
--- NOTE | 2022-11-01 12:54 | NUR ---
MEPELEX REPLACED BY THIS RN STUDENT, NO SKIN ISSUES NOTED ON SACRUM.
--- NOTE | 2022-11-01 13:25 | NUR ---
Agree with student nurse Roger assessment of the patient. Patient is A&Ox4. VSS 3L NC O2, no reported SOB. IV CDI. Denies pain and discomfort. Call light within reach.
[2022-11-01 15:26] VITALS: BP 115/54; PULSE 68; TEMP 98
--- NOTE | 2022-11-01 15:52 | NUR ---
SW contacted [facility] and they will not have an accepting anser until Friday. Phone call received from Kye at [facility] that they accept this patient but are waiting on insurance authorization. Discharge plan: [facility]
--- NOTE | 2022-11-01 17:06 | NUR ---
Clinical auth request sent to [facility]
--- NOTE | 2022-11-01 20:30 | NUR ---
Pt assessment completed around 2029. A&Ox4. Reports mild pain on abdomen that gets worst if he focuses in the pain. BLE with umma boots and wrapped with covan. Redness on toes with some inflamation. JERRY midline is CDI. Belgica ESCALERA assisted this HUMANITIES TEACHER to add another IV site to RFA. Folley catheter in place with dark carissa and cloudy urine with sediment. On O2 at 3L per NC. Mepilex in saccrum. Belongings and call light are within reach.
[2022-11-01 20:38] VITALS: BP 118/53; PULSE 71; TEMP 98.1
[2022-11-01 23:57] VITALS: BP 108/53; PULSE 69; TEMP 98
[2022-11-02 03:40] VITALS: BP 117/59; PULSE 64; TEMP 98.5
--- NOTE | 2022-11-02 04:34 | NUR ---
Pt assessment completed around 2029. A&Ox4. Reports mild pain on abdomen that gets worst if he focuses in the pain. BLE with umma boots and wrapped with covan. Redness on toes with some inflamation. JERRY peripheral line is CDI. Belgica ESCALERA assisted this LOBSTERMAN to switch IV to RFA. Folley catheter in place with dark carissa and cloudy urine with sediment. On O2 at 3L per NC. Mepilex in saccrum. Belongings and call light are within reach.
[2022-11-02 06:58] LABS: CALCIUM 8.4 mg/dL (8.4-10.2); CREATININE, serum 0.81 mg/dL (0.72-1.25); POTASSIUM 4.4 mmol/L (3.5-4.5)
[2022-11-02 06:58] LABS: MEAN CELL VOLUME 82 fl (80.0-100.0); MEAN CORPUSCULAR HGB CONC 27 g/dl (33.0-37.0); MEAN PLATELET VOLUME 9.8 fl (7.4-10.4); PLATELET COUNT 260 K/mm3 (130-400); RED BLOOD COUNT 3.93 M/mm3 (4.20-5.60); REDCELL DISTRIBUTION WIDTH-CV 19.4 % (11.5-14.5)
[2022-11-02 07:02] LABS: HEMATOCRIT 32.1 % (42.0-52.0); HEMOGLOBIN 8.7 g/dl (13.5-18.0); MEAN CORPUSCULAR HEMOGLOBIN 22 pg (27-31)
[2022-11-02 07:06] VITALS: BP 115/58; PULSE 60; TEMP 98.7
--- NOTE | 2022-11-02 08:00 | NUR ---
Patient sitting up in bed eating breakfast. A&Ox4. VSS 3L NC O2, no reported SOB. IV CDI. Denies pain and discomfort. Matthews intact. BLE dressing drainage, will change. No further needs expressed. Call light within reach
[2022-11-02 08:28] LABS: BASOPHIL 1 % (0-2); EOSINOPHIL 2 % (0-4); LYMPHOCYTE 23 % (20.0-51.0); NEUTROPHILS 64 % (42.0-75.2)
[2022-11-02 08:29] LABS: ANISOCYTOSIS 2+; HYPOCHROMIA 3+; PLATELET ESTIMATE NORMAL (NORMAL)
[2022-11-02 11:01] VITALS: BP 105/52; PULSE 62; TEMP 97.7
--- NOTE | 2022-11-02 14:30 | NUR ---
Unna boots replaced on BLE. Drainage on prior unna boots. Coban covering. Patient tolerated well. Patient assisted back to bed, BLE elevated on pillow. No further needs expressed. Call light within reach
[2022-11-02 15:09] VITALS: BP 114/55; PULSE 67; TEMP 98.1
[2022-11-02 19:36] VITALS: BP 111/51; PULSE 50; TEMP 98.3
[2022-11-02 23:35] VITALS: BP 122/58; PULSE 67; TEMP 97.4
[2022-11-03 03:51] VITALS: BP 103/48; PULSE 71; TEMP 97.7
--- NOTE | 2022-11-03 05:41 | NUR ---
Pt assessment completed around 2099. A&Ox4. Fluids were running through RFA peripheral line and pt pulled IV out sometime between [id number]. JERRY midline is CDI. Folley catheter remains in place. On O2 at 3L per NC. Around 2340 pt ambulated to the bathroom with assistance and had a Large formed BM. Stool sample collected. Pt denies pain or discomfort. Linens ot changed and assisted pt to transfer back to bed. Unna boots remain in place. Scattered bleeding noticed on dressings. Mepilex remains in place on saccrum. No further needs or concerns were expressed. Belongings and call light are within reach.
[2022-11-03 06:16] LABS: MEAN CELL VOLUME 81 fl (80.0-100.0); MEAN CORPUSCULAR HGB CONC 28 g/dl (33.0-37.0); MEAN PLATELET VOLUME 9.9 fl (7.4-10.4); PLATELET COUNT 286 K/mm3 (130-400); RED BLOOD COUNT 3.85 M/mm3 (4.20-5.60); REDCELL DISTRIBUTION WIDTH-CV 19.5 % (11.5-14.5)
[2022-11-03 06:18] LABS: HEMATOCRIT 31.1 % (42.0-52.0); HEMOGLOBIN 8.6 g/dl (13.5-18.0); MEAN CORPUSCULAR HEMOGLOBIN 22 pg (27-31)
[2022-11-03 06:33] LABS: CALCIUM 8.3 mg/dL (8.4-10.2); CREATININE, serum 0.87 mg/dL (0.72-1.25); POTASSIUM 4.2 mmol/L (3.5-4.5)
[2022-11-03 06:44] LABS: ANISOCYTOSIS 1+; BAND 2 % (0-10); HYPOCHROMIA 3+; LYMPHOCYTE 13 % (20.0-51.0); MICROCYTOSIS 1+; NEUTROPHILS 79 % (42.0-75.2); PLATELET ESTIMATE NORMAL (NORMAL)
[2022-11-03 06:46] LABS: POLYCHROMASIA 1+; STOMATOCYTE 1+
--- NOTE | 2022-11-03 08:00 | NUR ---
Patient sitting up in bed, A&Ox4. VSS 3L NC O2, no reported SOB. Matthews intact. IV CDI. Denies pain and discomfort. Unna boot BLE CDI. Call light within reach
[2022-11-03 08:39] VITALS: BP 104/49; PULSE 71; TEMP 97.9
[2022-11-03 11:15] VITALS: BP 109/57; PULSE 69; TEMP 97.8
--- NOTE | 2022-11-03 13:40 | NUR ---
JB madrid supervised, charting reviewed by this instructor.
[2022-11-03 15:19] VITALS: BP 113/55; PULSE 68; TEMP 97.5
[2022-11-03 19:14] VITALS: BP 100/54; PULSE 91; TEMP 98.6
--- NOTE | 2022-11-03 21:49 | NUR ---
Pt assessment was completed at 2014. All PO meds given per emar. No needs or concerns expressed at this time. Unna boots remain in place. On 3L of O2 per NC. Folley catheter with yellow clear urine in bag. Belongings and call light are within reach.
[2022-11-03 23:38] VITALS: BP 109/65; PULSE 62; TEMP 97.7
--- NOTE | 2022-11-04 07:31 | NUR ---
Pt had moderate amount of brown soft BM. He got transferred to the bathroom with assistance of rosalie GLASGOW. Belongings and call light are within reach.
--- NOTE | 2022-11-04 08:03 | NUR ---
PATIENT ALERT AND ORIENTED X4. VSS. PATIENT HERE FOR CHF EXACERBATION. PATIENT DENIES ANY PAIN. ASSESSMENT PERFORMED. AM MEDS TO BE ADMINISTERED BY STUDENT NURSE, YESSI. PATIENT ON 3L PER NC, WHICH IS BASELINE. ROSA TO DD WITH LIGHT DEANGELO OUTPUT. UNNA BOOT TO BLE WRAPPED IN COBAN. CHANGED 11/03 WILL MONITOR FOR INCREASED OUTPUT TO DRESSING. RIGHT UA IV INT, FLUSHES DECENTLY. PATIENT RESTING IN BED, CALL LIGHT NEAR.
[2022-11-04 08:15] VITALS: BP 120/56; PULSE 72; TEMP 98
[2022-11-04] MEDS ORDERED: FERRO-TIME325 MG PO (08:20)
[2022-11-04] MEDS ORDERED: [UNRECOGNIZED DRUG - SUPPLY] TP (08:22)
--- NOTE | 2022-11-04 09:13 | NUR ---
[facility] contacted [facility] to follow up on auth. The sales representative groceries reports that that the request for auth is still pending and they should be contacting MAGUI back today with their decision. MAGUI notified Kye at [facility]
--- NOTE | 2022-11-04 11:13 | NUR ---
JB charting reviewed, agree with documentation. LALI Key Clinical Instructor
[2022-11-04] MEDS ORDERED: BACTRIM DS 8001 TAB PO (11:19)
[2022-11-04] MEDS ORDERED: PRINCIPEN500 MG PO (11:20)
[2022-11-04 12:17] VITALS: BP 109/57; PULSE 70; TEMP 97.9
--- NOTE | 2022-11-04 14:29 | NUR ---
A circulation sales representative with [facility] notified MAGUI that the patient was approved for SNF from 11/01-11/05. Auth ID#[id number]. MAGUI notified Kye at [facility]. Kye reports that they can accept the patient today and a pharmacy picking technician time was scheduled around 1430. MAGUI met with the patient to update. The patient is in agreement to the plan. He shares his concerns about lodging. He states that him and his daughter got an eviction notice. They are trying to find housing. MAGUI presented and read the IM form outloud to the patient. The patient verbalized understanding and agreement to discharge today. He signed the form and MAGUI provided him with a copy. MAGUI contacted the patient's daughter, Lucille, to update on the above and address the eviction. Lucille states that she is actively looking for a new place to rent. They have until December 18 to vacate their apartment now. MAGUI informed them of [facility]. Lucille reports that they applied for low income housing in [place], but they make to much. She plans to continue to look for a rental in [place] and [place]. The patient is to discharge today, 11/04, to [facility] for a skilled stay. Transportation scheduled around 1430. MAGUI notified the RN. No additional needs at this time.
--- NOTE | 2022-11-04 16:14 | NUR ---
IV DC'D. PATIENT AND BELONGINGS PACKED UP AND ESCORTED [facility]. DRESSING TO BLE PERFORMED PRIOR TO DC.
--- NOTE | 2022-11-04 16:15 | NUR ---
REPORT CALLED TO JAVON AT [facility].
== END 2022-11-04 16:05 | DRG 871 ==
LOC: MEDICAL 23:08
PROVIDERS: Internal Medicine Gastroenterology; Nurse Practitioner Family; Physician Assistant; Student in an Organized Health Care Education/Training Program; ADMIT Internal Medicine
DX: A41.9 Sepsis, unspecified organism (principal); I50.33 Acute on chronic diastolic (congestive) heart failure; J96.21 Acute and chronic respiratory failure with hypoxia; J96.22 Acute and chronic respiratory failure with hypercapnia; N17.9 Acute kidney failure, unspecified; L03.116 Cellulitis of left lower limb; L03.115 Cellulitis of right lower limb; J98.11 Atelectasis; E66.2 Morbid (severe) obesity with alveolar hypoventilation; I48.20 Chronic atrial fibrillation, unspecified; I48.92 Unspecified atrial flutter; I31.39 Other pericardial effusion (noninflammatory); E87.1 Hypo-osmolality and hyponatremia; L97.919 Non-pressure chronic ulcer of unspecified part of right lower leg with unspecified severity; L97.921 Non-pressure chronic ulcer of unspecified part of left lower leg limited to breakdown of skin; Z68.41 Body mass index [BMI] 40.0-44.9, adult; N18.9 Chronic kidney disease, unspecified; I89.0 Lymphedema, not elsewhere classified; J44.9 Chronic obstructive pulmonary disease, unspecified; D50.9 Iron deficiency anemia, unspecified; K59.00 Constipation, unspecified; K22.89 Other specified disease of esophagus; I95.2 Hypotension due to drugs; Z20.822 Contact with and (suspected) exposure to COVID-19; T50.2X5A Adverse effect of carbonic-anhydrase inhibitors, benzothiadiazides and other diuretics, initial encounter; B95.61 Methicillin susceptible Staphylococcus aureus infection as the cause of diseases classified elsewhere; I44.0 Atrioventricular block, first degree; B95.2 Enterococcus as the cause of diseases classified elsewhere; B96.89 Other specified bacterial agents as the cause of diseases classified elsewhere; I89.8 Other specified noninfective disorders of lymphatic vessels and lymph nodes; Z99.81 Dependence on supplemental oxygen; Z86.718 Personal history of other venous thrombosis and embolism; Z91.199 Patient's noncompliance with other medical treatment and regimen due to unspecified reason; Z79.01 Long term (current) use of anticoagulants; Z79.82 Long term (current) use of aspirin; Z87.891 Personal history of nicotine dependence; Z90.49 Acquired absence of other specified parts of digestive tract; Z95.5 Presence of coronary angioplasty implant and graft
CPT/HCPCS: A6456; C9113; J1940; J2543; J3370; J7030; J7040; J7050

== ENCOUNTER → 2024-01-31 | Outpatient (REF) | payer MEDICARE ==
[~2024-01-31] MED LIST changes: +FERRO-TIME325 MG PO; +K-TAB10 PO; +LASIX 80MG TABL80 MG PO; +PRINCIPEN500 MG PO; +[UNRECOGNIZED DRUG - SUPPLY] TP
[2024-01-31 01:19] LABS: BASO % 0.4 % (0.0-2.0); EOS % 0.9 % (0.0-4.0); GRAN # 3.7 K/mm3 (1.4-6.5); GRAN % 79.6 % (42.2-75.2); LYMPH # 0.5 K/mm3 (1.2-3.4); LYMPH % 11.6 % (20.0-51.0); MEAN CELL VOLUME 85 fl (80.0-100.0); MEAN CORPUSCULAR HGB CONC 27 g/dl (33.0-37.0); MEAN PLATELET VOLUME 10.1 fl (7.4-10.4); MONO # 0.3 K/mm3 (0.1-0.6); MONO % 7.3 % (1.7-9.3); PLATELET COUNT 228 K/mm3 (130-400); RED BLOOD COUNT 3.27 M/mm3 (4.20-5.60); REDCELL DISTRIBUTION WIDTH-CV 18.5 % (11.5-14.5)
[2024-01-31 01:29] LABS: HEMATOCRIT 27.8 % (42.0-52.0); HEMOGLOBIN 7.4 g/dl (13.5-18.0); MEAN CORPUSCULAR HEMOGLOBIN 23 pg (27-31)
== END ==
LOC: ZCOL.LAB 01:14
PROVIDERS: Family Medicine
DX: I89.0 Lymphedema, not elsewhere classified (principal); I87.2 Venous insufficiency (chronic) (peripheral); L97.812 Non-pressure chronic ulcer of other part of right lower leg with fat layer exposed; D64.9 Anemia, unspecified

== ENCOUNTER → 2024-02-16 | Outpatient (CLI) | payer MEDICARE | LOC: ZCOL.LAB 13:19 | DX: D64.9 Anemia, unspecified (principal) ==

== ENCOUNTER → 2024-02-27 | Outpatient (REF) | payer MEDICARE ==
[2024-02-27 17:01] LABS: BASO % 0.3 % (0.0-2.0); EOS # 0.1 K/mm3 (0.0-0.7); EOS % 1.4 % (0.0-4.0); GRAN # 4.5 K/mm3 (1.4-6.5); GRAN % 75.5 % (42.2-75.2); LYMPH # 0.7 K/mm3 (1.2-3.4); LYMPH % 11.8 % (20.0-51.0); MEAN CELL VOLUME 85 fl (80.0-100.0); MEAN CORPUSCULAR HGB CONC 27 g/dl (33.0-37.0); MONO # 0.6 K/mm3 (0.1-0.6); MONO % 9.6 % (1.7-9.3); PLATELET COUNT 227 K/mm3 (130-400); RED BLOOD COUNT 3.32 M/mm3 (4.20-5.60); REDCELL DISTRIBUTION WIDTH-CV 20.4 % (11.5-14.5)
[2024-02-27 17:08] LABS: HEMATOCRIT 28.3 % (42.0-52.0); HEMOGLOBIN 7.5 g/dl (13.5-18.0); MEAN CORPUSCULAR HEMOGLOBIN 23 pg (27-31)
== END ==
LOC: ZCOL.LAB 16:13
PROVIDERS: Family Medicine
DX: I89.0 Lymphedema, not elsewhere classified (principal); I87.2 Venous insufficiency (chronic) (peripheral); L97.812 Non-pressure chronic ulcer of other part of right lower leg with fat layer exposed

== ENCOUNTER 2024-03-11 19:12 | Emergency (ER) | payer MEDICARE ==
[~2024-03-11] VITALS: Ht 188 cm; Wt 145.9 kg
[2024-03-11 19:32] VITALS: TEMP 98.4
[2024-03-12 01:22] VITALS: BP 151/131; PULSE 106
== END 2024-03-12 03:57 | disposition home or self-care (01) ==
LOC: COL.ER 19:12
DX: S81.811A Laceration without foreign body, right lower leg, initial encounter (principal); S81.812A Laceration without foreign body, left lower leg, initial encounter; W26.9XXA Contact with unspecified sharp object(s), initial encounter